=== PATIENT | female | born 1990 | race African-American/Black ===

== ENCOUNTER 2016-05-10 11:28 | Emergency (ER) | payer OTHER ==
[~2016-05-10] VITALS: Ht 170.2 cm; Wt 61.0 kg
[~2016-05-10 11:28] MED LIST: ENOX60IN SQ; FOLI1TAB4 PO; HYDR500C PO; OXYC-395 PO
[2016-05-10 11:34] VITALS: BP 112/67; PULSE 84; RESP 16; TEMP 98.5; O2SAT 100
[2016-05-10] MEDS ORDERED: SODIUM CHLOR 0.9% 1000 ML INJ 1,000 ML IV ONE ×2 (12:31→12:45)
[2016-05-10 12:39] VITALS: O2SAT 98
--- NOTE | 2016-05-10 12:43 | PD ---
HPI Chief Complaint: Sickle Cell Time Seen by Provider: 12:25 Travel History International Travel<30 days: No Contact w/Intl Traveler<30days: No Traveled to known affect area: No History of Present Illness HPI Patient is a 25-year-old female with history of hemoglobin sickle cell disease, presents to emergency room with complaints of sickle cell crisis. Patient reports that she began to have her crisis starting last night, reports that she has diffuse abdominal pain with pain from her knees down to her feet. Patient reports that this is a mild form of her sickle cell crisis as her symptoms are usually more severe. Patient reports that her symptoms are very typical today when compared to her previous symptoms. Patient does follow with Dr. Chen when hematology/oncology. Reports that she recently started hemoglobin electrophoresis which has helped her with her symptoms. Reports that she has not had a sickle cell flare up in a long time. Patient reports that her symptoms today are at baseline and better very similar to when she has had sickle cell crisis in the past. Patient with no fevers or chills. Patient with no chest pain or shortness of breath at this time. PFSH Past Medical History Hx Anticoagulant Therapy: Yes (LOVENOX ) Anemia: Yes (sickle cell) Arthritis: No Asthma: No Autoimmune Disease: No Blood Disorders: Yes (SICKLE CELL) Anxiety: No Depression: No Heart Rhythm Problems: No Cancer: No Cardiovascular Problems: Yes (PUL HYPERTENSION) High Cholesterol: No Chemotherapy: No Chest Pain: Yes Congestive Heart Failure: No COPD: No Cerebrovascular Accident: No Diabetes: No Diminished Hearing: No Endocrine: No Gastrointestinal Disorders: No GERD: No Genitourinary: No Headaches: Yes Hiatal Hernia: No Heparin Induced Thrombocytopen: No Hypertension: Yes (pulmonary) Immune Disorder: No Implanted Vascular Access Dvce: Yes (RIGHT INFUSAPORT) Kidney Stones: No Musculoskeletal: No Neurologic: No Psychiatric: No Reproductive: Yes (PE 2013) Respiratory: Yes (PE 2013) Immunizations Current: Yes Migraines: No Pneumonia: Yes Radiation Therapy: No Renal Failure: No Seizures: No Sickle Cell Disease: Yes Sleep Apnea: No Thyroid Disease: No Ulcer: No ?: Not : 0 Para: 0 Miscarriage: 0 : 0 Past Surgical History Abdominal Surgery: No AICD: No Arteriovenous Shunt: No Body Medical Devices: right chest POWER PORT Cardiac Surgery: No Cholecystectomy: Yes Ear Surgery: No Endocrine Surgery: No Eye Surgery: No Genitourinary Surgery: No Gynecologic Surgery: No Hysterectomy: No Insulin Pump: No Joint Replacement: No Neurologic Surgery: No Oral Surgery: No Pacemaker: No Thoracic Surgery: No Other Surgery: Yes (Gallbladder) Social History Alcohol Use: No Tobacco Use: No Substance Use: No Allergies-Medications (Allergen,Severity, Reaction): Coded Allergies: Pineapple (Verified Allergy, Severe, 05/10/16) FACE SWELLING ITCHING Reported Meds & Prescriptions Reported Meds & Active Scripts Active Oxycodone (Oxycodone HCl) 10 Mg Tab 10 Mg PO Q6H PRN Reported Folate (Folic Acid) 1 Mg Tab 1 Mg PO DAILY Enoxaparin Inj (Enoxaparin Sodium) 60 Mg/0.6 Ml Syr 60 Mg SQ DAILY Hydrea (Hydroxyurea) 500 Mg Cap 500 Mg PO DAILY Review of Systems General / Constitutional: No: Fever Eyes: No: Visual changes HENT: No: Headaches Cardiovascular: No: Chest Pain or Discomfort Respiratory: No: Shortness of Breath Gastrointestinal: Positive: Abdominal Pain Genitourinary: No: Dysuria Musculoskeletal: No: Pain Skin: No Rash Neurologic: No: Weakness Psychiatric: No: Depression Endocrine: No: Polydipsia Hematologic/Lymphatic: No: Easy Bruising Physical Exam Narrative GENERAL: No acute distress, nontoxic SKIN: Focused skin assessment warm/dry. HEAD: Atraumatic. Normocephalic. EYES: Pupils equal and round. No scleral icterus. No injection or drainage. ENT: No nasal bleeding or discharge. Mucous membranes pink and moist. NECK: Trachea midline. No JVD. CARDIOVASCULAR: Regular rate and rhythm. No murmur appreciated. RESPIRATORY: No accessory muscle use. Clear to auscultation. Breath sounds equal bilaterally. GASTROINTESTINAL: Abdomen soft, non-tender, nondistended. Hepatic and splenic margins not palpable. MUSCULOSKELETAL: No obvious deformities. No clubbing. No cyanosis. No edema. NEUROLOGICAL: Awake and alert. No obvious cranial nerve deficits. Motor grossly within normal limits. Normal speech. PSYCHIATRIC: Appropriate mood and affect; insight and judgment normal. Data Data Last Documented VS Vital Signs Date Time Temp Pulse Resp B/P Pulse Ox O2 Delivery O2 Flow Rate FiO2 05/10/16 13:16 63 18 101/62 98 Room Air 05/10/16 11:34 98.5 Orders Complete Blood Count With Diff (05/10/16 12:31) Comprehensive Metabolic Panel (05/10/16 12:31) Retic Count (05/10/16 12:31) Urinalysis - C+S If Indicated (05/10/16 12:31) Chest, Single Ap (05/10/16 12:31) Ecg Monitoring (05/10/16 12:31) Iv Access Insert/Monitor (05/10/16 12:31) Oximetry (05/10/16 12:31) Hydromorphone Pf Inj (Dilaudid Pf Inj) (05/10/16 12:45) Ondansetron Inj (Zofran Inj) (05/10/16 12:45) Sodium Chloride 0.9% Flush (Ns Flush) (05/10/16 12:45) Sodium Chlor 0.9% 1000 Ml Inj (Ns 1000 M (05/10/16 12:31) Diphenhydramine Inj (Benadryl Inj) (05/10/16 12:45) Sodium Chloride 0.9% Flush (Ns Flush) (05/10/16 12:45) Heparin Central Flush (Heparin Central F (05/10/16 12:45) Ed Urine Pregnancytest Poc (05/10/16 12:31) Sodium Chlor 0.9% 1000 Ml Inj (Ns 1000 M (05/10/16 12:45) Hydromorphone Pf Inj (Dilaudid Pf Inj) (05/10/16 14:30) Labs Laboratory Tests Test 05/10/16 12:59 White Blood Count 10.9 TH/MM3 Red Blood Count 3.13 MIL/MM3 Hemoglobin 9.1 GM/DL Hematocrit 28.2 % Mean Corpuscular Volume 90.1 FL Mean Corpuscular Hemoglobin 28.9 PG Mean Corpuscular Hemoglobin 32.1 % Concent Red Cell Distribution Width 14.8 % Platelet Count 625 TH/MM3 Mean Platelet Volume 7.9 FL Neutrophils (%) (Auto) 74.2 % Lymphocytes (%) (Auto) 17.9 % Monocytes (%) (Auto) 4.9 % Eosinophils (%) (Auto) 2.6 % Basophils (%) (Auto) 0.4 % Neutrophils # (Auto) 8.2 TH/MM3 Lymphocytes # (Auto) 1.9 TH/MM3 Monocytes # (Auto) 0.5 TH/MM3 Eosinophils # (Auto) 0.3 TH/MM3 Basophils # (Auto) 0.0 TH/MM3 CBC Comment AUTO DIFF Differential Comment AUTO DIFF CONFIRMED Reticulocyte Count 1.7 % Absolute Reticulocyte Count 49.9 MIL/L Urine Collection Type CLEAN CATCH Urine Color YELLOW Urine Turbidity SLIGHT Urine pH 7.0 Urine Specific [place] 1.013 Urine Protein NEG mg/dL Urine Glucose (UA) NEG mg/dL Urine Ketones NEG mg/dL Urine Occult Blood TRACE Urine Nitrite NEG Urine Bilirubin NEG Urine Leukocyte Esterase NEG Urine RBC 4-9 /hpf Urine WBC 0-2 /hpf Urine Squamous Epithelial 6-8 /hpf Cells Urine Amorphous Sediment MOD Microscopic Urinalysis Comment CULT NOT INDICATED Urine Collection Time 1252 Sodium Level 142 MEQ/L Potassium Level 4.2 MEQ/L Chloride Level 111 MEQ/L Carbon Dioxide Level 25.7 MEQ/L Anion Gap 5 MEQ/L Blood Urea Nitrogen 4 MG/DL Creatinine 0.42 MG/DL Estimat Glomerular Filtration 224 ML/MIN Rate Random Glucose 101 MG/DL Calcium Level 8.6 MG/DL Total Bilirubin 1.4 MG/DL Aspartate Amino Transf 64 U/L (AST/SGOT) Alanine Aminotransferase 101 U/L (ALT/SGPT) Alkaline Phosphatase 96 U/L Total Protein 7.8 GM/DL Albumin 3.9 GM/DL [facility] Medical Decision Making Medical Screen Exam Complete: Yes Emergency Medical Condition: Yes Interpretation(s) Vital Signs Date Time Temp Pulse Resp B/P Pulse Ox O2 Delivery O2 Flow Rate FiO2 05/10/16 13:16 63 18 101/62 98 Room Air 05/10/16 12:39 98 Room Air 05/10/16 11:34 98.5 84 16 112/67 100 Differential Diagnosis Sickle cell crisis, electrolyte abnormality, acute chest syndrome, anemia Narrative Course Patient is a 25-year-old female with history of hemoglobin sickle cell disease, presents to emergency room with complaints of typical sickle cell flare up. Patient reports that she has been having abdominal pain with pain from her knees and her feet since last night. Patient reports that symptoms are typical for her normal sickle cell crisis. Patient denies any chest pain or shortness breath, denies any fevers or chills. Labs including reticulocyte count ordered. IV fluids as well as pain medications ordered. We'll continue to monitor patient. Patient reevaluated, patient with continued pain, will remedicate CBC & BMP Diagram 05/10/16 12:59 Last Impressions Chest X-Ray 05/10/16 1231 Signed Impressions: Service Date/Time: Tuesday, May 10, 2016 12:50 - CONCLUSION: No acute disease. Harish Travis MD FACR Patient reevaluated, patient reports that she is feeling much better after second dose of Dilaudid. I reviewed all labs and all studies with patient detail. Patient reports resolution of symptoms. Patient will follow-up with her primary care doctor as well as your account executive key accounts and return to emergency room as needed. Patient thankful for care Diagnosis Primary Impression: Sickle cell anemia with crisis Patient Instructions: Narcotic given in the ED, General Instructions Additional Instructions: Please follow-up with your primary care doctor Please follow up with account executive key accounts Return to the emergency room as needed Disposition: 01 DISCHARGE HOME Condition: Stable Rose Marie Mccartney DO May 10, 2016 12:43
[2016-05-10] MEDS ORDERED: HYDROmorphone HCL PF 2 MG/ML VIAL IVS ONE ×2 (12:45→14:30)
[2016-05-10] MEDS ORDERED: ONDANSETRON HCL 4 MG/2 ML VIAL IVP ONE (12:45)
[2016-05-10] MEDS ORDERED: SODIUM CHLORIDE 0.9% FLUSH 10 ML FLUSH IVF PRN ×2 (12:45)
[2016-05-10] MEDS ORDERED: diphenhydrAMINE HCL 50 MG/ML VIAL IV ONE (12:45)
[2016-05-10 13:06] LABS: AUTOMATED NEUTROPHIL # 8.2 TH/MM3 (1.8-7.7); BASOPHIL % 0.4 % (0.0-2.0); EOSINOPHIL # 0.3 TH/MM3 (0-0.4); EOSINOPHIL % 2.6 % (0.0-4.0); HEMATOCRIT 28.2 % (35.0-46.0); LYMPH % 17.9 % (9.0-44.0); LYMPHOCYTE # 1.9 TH/MM3 (1.0-4.8); MEAN CELL VOLUME 90.1 FL (80.0-100.0); MEAN CORPUSCULAR HEMOGLOBIN 28.9 PG (27.0-34.0); MEAN CORPUSCULAR HGB CONC 32.1 % (32.0-36.0); MONO % 4.9 % (0.0-8.0); NEUT % 74.2 % (16.0-70.0); PLATELET COUNT 625 TH/MM3 (150-450); RED BLOOD COUNT 3.13 MIL/MM3 (4.00-5.30); RED CELL DISTRIBUTION WIDTH 14.8 % (11.6-17.2); WHITE BLOOD COUNT 10.9 TH/MM3 (4.0-11.0)
[2016-05-10 13:16] VITALS: BP 101/62; PULSE 63; RESP 18; O2SAT 98
[2016-05-10 13:20] LABS: BLOOD, URINE TRACE (NEG); GLUCOSE,URINE NEG (NEG); KETONE, URINE NEG (NEG); NITRITE,URINE NEG (NEG)
[2016-05-10 13:21] LABS: CHLORIDE 111 MEQ/L (98-107); POTASSIUM 4.2 MEQ/L (3.5-5.1); SODIUM (NA) 142 MEQ/L (136-145)
[2016-05-10 13:25] LABS: ANION GAP 5 MEQ/L (5-15); BICARBONATE 25.7 MEQ/L (21.0-32.0); BLOOD UREA NITROGEN 4 MG/DL (7-18); METHOD OF COLLECTION CLEAN CATCH; URINE COLOR YELLOW (YELLW/STRAW)
[2016-05-10 13:26] LABS: HEMO FLAGS AUTO DIFF
[2016-05-10 13:27] LABS: COMMENT (UR) CULT NOT INDICATED; COMMENT2 (UR) MUCOUS PRESENT; CULTURE IF INDICATED CULT NOT INDICATED; WBC, URINE 0-2 /hpf (0-5)
[2016-05-10 13:28] LABS: ALT (GPT) 101 U/L (10-53); AST (GOT) 64 U/L (15-37); GLOMERULAR FILTRATION RATE 224 ML/MIN (>89)
[2016-05-10 13:29] LABS: TOTAL BILIRUBIN ADULT 1.4 MG/DL (0.2-1.0)
[2016-05-10 13:30] LABS: ALKALINE PHOSPHATASE 96 U/L (45-117)
--- NOTE | 2016-05-10 13:33 | RADHPO ---
EXAM DATE/TIME: 05/10/2016 12:50 [facility] COMPARISON: CHEST SINGLE AP, December 29, 2015, 15:03. INDICATIONS : Chest pain. MEDICAL HISTORY : Sickle Cell disease. SURGICAL HISTORY : port ENCOUNTER: Initial ACUITY: 2 days PAIN SCORE: 2/10 LOCATION: Bilateral chest FINDINGS: A single view of the chest demonstrates the lungs to be symmetrically aerated without evidence of mas s, infiltrate or effusion. The cardiomediastinal contours are unremarkable. [id number] is noted on the right.. Osseous structures are intact. CONCLUSION: No acute disease. Harish Travis MD FACR on May 10, 2016 at 13:31 Board Certified Radiologist. This report was verified electronically.
[2016-05-10 13:52] LABS: SCAN/DIFF AUTO DIFF CONFIRMED
[2016-05-10 13:59] LABS: RETIC % 1.7 % (0.4-3.0); REVIEW FLAG FINAL
== END 2016-05-10 15:31 | disposition home or self-care (01) ==
LOC: PHED 11:28
DX: D57.00 Hb-SS disease with crisis, unspecified (principal); I27.2 Other secondary pulmonary hypertension; Z79.899 Other long term (current) drug therapy; Z79.01 Long term (current) use of anticoagulants
CPT/HCPCS: 71010; 80053; 81001; 84703; 85025; 85044; 96361; 96374; 96375; 96376; 99284; J1170; J1200; J1642; J2405; J7030

== ENCOUNTER 2016-06-26 14:27 | Emergency (ER) | payer OTHER ==
[2016-06-26 14:33] VITALS: BP 109/66; PULSE 103; RESP 20; TEMP 98.8; O2SAT 96
[2016-06-26] MEDS ORDERED: ONDANSETRON HCL 4 MG/2 ML VIAL IVP ONE (15:15)
[2016-06-26] MEDS ORDERED: SODIUM CHLOR 0.9% 1000 ML INJ 1,000 ML IV ONE (15:15)
[2016-06-26] MEDS ORDERED: MORPHINE SULFATE 8 MG/ML INJ IV PUSH ONE (15:15)
--- NOTE | 2016-06-26 15:16 | PD ---
HPI Chief Complaint: Sickle Cell Time Seen by Provider: 14:51 Travel History International Travel<30 days: No Contact w/Intl Traveler<30days: No Traveled to known affect area: No History of Present Illness HPI The patient was seen and examined in the presence of the nurse. She complains of sickle pain. Pain is diffusely located throughout the body. No specific area of pain. Denies fever. Severity symptoms is mild to moderate. No alleviating factors PFSH Past Medical History Hx Anticoagulant Therapy: Yes (LOVENOX ) Anemia: Yes (sickle cell) Arthritis: No Asthma: No Autoimmune Disease: No Blood Disorders: Yes (SICKLE CELL) Anxiety: No Depression: No Heart Rhythm Problems: No Cancer: No Cardiovascular Problems: Yes (PUL HYPERTENSION) High Cholesterol: No Chemotherapy: No Chest Pain: Yes Congestive Heart Failure: No COPD: No Cerebrovascular Accident: No Diabetes: No Diminished Hearing: No Endocrine: No Gastrointestinal Disorders: No GERD: No Genitourinary: No Headaches: Yes Hiatal Hernia: No Heparin Induced Thrombocytopen: No Hypertension: Yes (pulmonary) Immune Disorder: No Implanted Vascular Access Dvce: Yes (RIGHT INFUSAPORT) Kidney Stones: No Musculoskeletal: No Neurologic: No Psychiatric: No Reproductive: Yes (PE 2013) Respiratory: Yes (PE 2013) Immunizations Current: Yes Migraines: No Pneumonia: Yes Radiation Therapy: No Renal Failure: No Seizures: No Sickle Cell Disease: Yes Sleep Apnea: No Thyroid Disease: No Ulcer: No Tetanus Vaccination: Unknown Influenza Vaccination: No ?: Not LMP: IUD : 0 Para: 0 Miscarriage: 0 : 0 Past Surgical History Abdominal Surgery: No AICD: No Arteriovenous Shunt: No Body Medical Devices: right chest POWER PORT Cardiac Surgery: No Cholecystectomy: Yes Ear Surgery: No Endocrine Surgery: No Eye Surgery: No Genitourinary Surgery: No Gynecologic Surgery: No Hysterectomy: No Insulin Pump: No Joint Replacement: No Neurologic Surgery: No Oral Surgery: No Pacemaker: No Thoracic Surgery: No Other Surgery: Yes (Gallbladder) Social History Alcohol Use: No Tobacco Use: No Substance Use: No Allergies-Medications (Allergen,Severity, Reaction): Coded Allergies: Pineapple (Verified Allergy, Severe, 06/26/16) FACE SWELLING ITCHING Reported Meds & Prescriptions Reported Meds & Active Scripts Active Oxycodone (Oxycodone HCl) 10 Mg Tab 10 Mg PO Q6H PRN Reported Folate (Folic Acid) 1 Mg Tab 1 Mg PO DAILY Enoxaparin Inj (Enoxaparin Sodium) 60 Mg/0.6 Ml Syr 60 Mg SQ DAILY Hydrea (Hydroxyurea) 500 Mg Cap 500 Mg PO DAILY Review of Systems General / Constitutional: No: Fever Eyes: No: Visual changes HENT: No: Headaches Cardiovascular: No: Chest Pain or Discomfort Respiratory: No: Shortness of Breath Gastrointestinal: No: Abdominal Pain Genitourinary: No: Dysuria Musculoskeletal: Positive: Pain Skin: No Rash Neurologic: No: Weakness Psychiatric: No: Depression Endocrine: No: Polydipsia Hematologic/Lymphatic: No: Easy Bruising Physical Exam Narrative GENERAL: Well-nourished, well-developed patient in no apparent distress. SKIN: Focused skin assessment reveals no rash and nodules. Skin is Warm and dry. HEAD: Atraumatic. Normocephalic. EYES: Pupils equal and round. No scleral icterus. No injection or drainage. ENT: No nasal bleeding or discharge. Mucous membranes pink and moist. NECK: Trachea midline. No JVD. CARDIOVASCULAR: Regular rate and rhythm. No murmur appreciated. RESPIRATORY: No accessory muscle use. Clear to auscultation. Breath sounds equal bilaterally. GASTROINTESTINAL: Abdomen soft, non-tender, nondistended. Hepatic and splenic margins not palpable. MUSCULOSKELETAL: No obvious deformities. No clubbing. No cyanosis. No edema. NEUROLOGICAL: Awake and alert. No obvious cranial nerve deficits. Motor grossly within normal limits. Normal speech. PSYCHIATRIC: Appropriate mood and affect; insight and judgment normal. Data Data Last Documented VS Vital Signs Date Time Temp Pulse Resp B/P Pulse Ox O2 Delivery O2 Flow Rate FiO2 06/26/16 14:33 98.8 103 20 109/66 96 Orders Complete Blood Count With Diff (06/26/16 15:09) Ondansetron Inj (Zofran Inj) (06/26/16 15:15) Morphine Inj (Morphine Inj) (06/26/16 15:15) Sodium Chlor 0.9% 1000 Ml Inj (Ns 1000 M (06/26/16 15:15) Heparin Central Flush (Heparin Central F (06/26/16 15:15) Labs Laboratory Tests Test 06/26/16 15:18 White Blood Count 15.9 TH/MM3 Red Blood Count 2.61 MIL/MM3 Hemoglobin 7.8 GM/DL Hematocrit 23.4 % Mean Corpuscular Volume 89.4 FL Mean Corpuscular Hemoglobin 29.8 PG Mean Corpuscular Hemoglobin 33.3 % Concent Red Cell Distribution Width 19.4 % Platelet Count 640 TH/MM3 Mean Platelet Volume 7.5 FL Neutrophils (%) (Auto) 70.1 % Lymphocytes (%) (Auto) 19.1 % Monocytes (%) (Auto) 6.6 % Eosinophils (%) (Auto) 2.0 % Basophils (%) (Auto) 2.2 % Neutrophils # (Auto) 11.3 TH/MM3 Lymphocytes # (Auto) 3.0 TH/MM3 Monocytes # (Auto) 1.0 TH/MM3 Eosinophils # (Auto) 0.3 TH/MM3 Basophils # (Auto) 0.3 TH/MM3 CBC Comment AUTO DIFF MDM Medical Decision Making Medical Screen Exam Complete: Yes Emergency Medical Condition: Yes Medical Record Reviewed: Yes Differential Diagnosis Sickle cell pain, narcotic seeking behavior, narcotic withdrawal Narrative Course I have reviewed the patient's electronic medical record. Reviewed her last hematology visit which was May 2016 and her last 3 blood draws. Her baseline hemoglobin is around 8 Port is accessed I gave her 1 L normal saline IV bolus Gave her dose of IV Zofran and IV morphine CBC reveals hemoglobin of 7.8, similar to prior Patient has history of iron overload so would want to limit transfusion unless absolutely necessary On recheck she looks clinically asymptomatic She is euvolemic Stable for outpatient follow-up Diagnosis Primary Impression: Sickle cell anemia with crisis Additional Instructions: The patient was advised to follow up with their physician and return if they worsen. Med/Other Pt SpecificInfo: Other Disposition: 01 DISCHARGE HOME Condition: Stable Afshin Grigsby MD June 26, 2016 15:16
[2016-06-26 15:39] LABS: AUTOMATED NEUTROPHIL # 11.3 TH/MM3 (1.8-7.7); BASOPHIL # 0.3 TH/MM3 (0-0.2); BASOPHIL % 2.2 % (0.0-2.0); EOSINOPHIL # 0.3 TH/MM3 (0-0.4); HEMATOCRIT 23.4 % (35.0-46.0); LYMPH % 19.1 % (9.0-44.0); MEAN CELL VOLUME 89.4 FL (80.0-100.0); MEAN CORPUSCULAR HEMOGLOBIN 29.8 PG (27.0-34.0); MEAN CORPUSCULAR HGB CONC 33.3 % (32.0-36.0); MONO % 6.6 % (0.0-8.0); NEUT % 70.1 % (16.0-70.0); PLATELET COUNT 640 TH/MM3 (150-450); RED BLOOD COUNT 2.61 MIL/MM3 (4.00-5.30); RED CELL DISTRIBUTION WIDTH 19.4 % (11.6-17.2); WHITE BLOOD COUNT 15.9 TH/MM3 (4.0-11.0)
[2016-06-26 15:40] LABS: HEMO FLAGS AUTO DIFF
[2016-06-26 16:25] VITALS: BP 97/68; PULSE 74; RESP 16; O2SAT 98
[2016-06-26 16:53] LABS: KERATOCYTES 1+ (NORMAL); OVALOCYTES 1+ (NORMAL); TEARDROP RBCS 1+ (NORMAL)
[2016-06-26 16:54] LABS: PLATELET ESTIMATE SMEAR HIGH (NORMAL); SCAN/DIFF AUTO DIFF CONFIRMED
[2016-06-26 16:55] LABS: SICKLE CELLS 1+ (NORMAL)
[2016-06-26 16:57] LABS: CRENATED RBCS 1+ (NORMAL)
== END 2016-06-26 17:00 | disposition home or self-care (01) ==
LOC: PHED 14:27
DX: D57.00 Hb-SS disease with crisis, unspecified (principal); I27.2 Other secondary pulmonary hypertension; Z86.711 Personal history of pulmonary embolism
CPT/HCPCS: 85025; 96361; 96374; 96375; 99284; J1642; J2270; J2405; J7030

== ENCOUNTER 2016-09-01 03:25 | Emergency (ER) | payer OTHER ==
[2016-09-01 03:27] VITALS: BP 100/65; PULSE 95; RESP 16; TEMP 98.9; O2SAT 96
[2016-09-01] MEDS ORDERED: SODIUM CHLOR 0.9% 1000 ML INJ 1,000 ML IV ONE ×2 (05:41→06:30)
[2016-09-01] MEDS ORDERED: diphenhydrAMINE HCL 50 MG/ML VIAL IV ONE (05:45)
[2016-09-01] MEDS ORDERED: HYDROmorphone HCL PF 1 MG/ML VIAL IVS ONE (05:45)
[2016-09-01] MEDS ORDERED: SODIUM CHLORIDE 0.9% FLUSH 10 ML FLUSH IVF PRN (05:45)
[2016-09-01] MEDS ORDERED: ONDANSETRON HCL 4 MG/2 ML VIAL IVP ONE (05:45)
--- NOTE | 2016-09-01 06:17 | PD ---
HPI Chief Complaint: Sickle Cell Time Seen by Provider: 05:41 Travel History International Travel<30 days: No Contact w/Intl Traveler<30days: No Traveled to known affect area: No History of Present Illness HPI 25 -year-old female with a history of sickle cell disease arrives with URI symptoms for the past 2 days. She reports she's had a fever for the past 2 days or so. Typically she feels total body pain with her sickle cell disease however it is most severe in the arms and legs. She has no dyspnea. The patient states typically a URI-like process can precipitate sickle cell type crises. PFSH Past Medical History Hx Anticoagulant Therapy: Yes (LOVENOX ) Anemia: Yes (sickle cell) Arthritis: No Asthma: No Autoimmune Disease: No Blood Disorders: Yes (SICKLE CELL) Anxiety: No Depression: No Heart Rhythm Problems: No Cancer: No Cardiovascular Problems: Yes (PUL HYPERTENSION) High Cholesterol: No Chemotherapy: No Chest Pain: Yes Congestive Heart Failure: No COPD: No Cerebrovascular Accident: No Diabetes: No Diminished Hearing: No Endocrine: No Gastrointestinal Disorders: No GERD: No Genitourinary: No Headaches: Yes Hiatal Hernia: No Heparin Induced Thrombocytopen: No Hypertension: Yes (pulmonary) Immune Disorder: No Implanted Vascular Access Dvce: Yes (RIGHT INFUSAPORT) Kidney Stones: No Musculoskeletal: No Neurologic: No Psychiatric: No Reproductive: Yes (PE 2013) Respiratory: Yes (PE 2013) Immunizations Current: Yes Migraines: No Pneumonia: Yes Radiation Therapy: No Renal Failure: No Seizures: No Sickle Cell Disease: Yes Sleep Apnea: No Thyroid Disease: No Ulcer: No ?: Not LMP: 08/16/16 : 0 Para: 0 Miscarriage: 0 : 0 Past Surgical History Abdominal Surgery: No AICD: No Arteriovenous Shunt: No Body Medical Devices: right chest POWER PORT Cardiac Surgery: No Cholecystectomy: Yes Ear Surgery: No Endocrine Surgery: No Eye Surgery: No Genitourinary Surgery: No Gynecologic Surgery: No Hysterectomy: No Insulin Pump: No Joint Replacement: No Neurologic Surgery: No Oral Surgery: No Pacemaker: No Thoracic Surgery: No Other Surgery: Yes (Gallbladder) Social History Alcohol Use: No Tobacco Use: No Substance Use: No Allergies-Medications (Allergen,Severity, Reaction): Coded Allergies: Pineapple (Verified Allergy, Severe, 09/01/16) FACE SWELLING ITCHING Reported Meds & Prescriptions Reported Meds & Active Scripts Active Oxycodone (Oxycodone HCl) 10 Mg Tab 10 Mg PO Q6H PRN Reported Enoxaparin Inj (Enoxaparin Sodium) 60 Mg/0.6 Ml Syr 60 Mg SQ DAILY Hydrea (Hydroxyurea) 500 Mg Cap 500 Mg PO DAILY Review of Systems Except as stated in HPI: all other systems reviewed are Neg Physical Exam Narrative GENERAL: 45-year-old female well-nourished well-developed no acute distress SKIN: Focused skin assessment warm/dry. HEAD: Atraumatic. Normocephalic. EYES: Pupils equal and round. No scleral icterus. No injection or drainage. ENT: No nasal bleeding or discharge. Mucous membranes pink and moist. NECK: Trachea midline. No JVD. CARDIOVASCULAR: Regular rate and rhythm. No murmur appreciated. RESPIRATORY: No accessory muscle use. Clear to auscultation. Breath sounds equal bilaterally. GASTROINTESTINAL: Abdomen soft, non-tender, nondistended. Hepatic and splenic margins not palpable. MUSCULOSKELETAL: No obvious deformities. No clubbing. No cyanosis. No edema. NEUROLOGICAL: Awake and alert. No obvious cranial nerve deficits. Motor grossly within normal limits. Normal speech. PSYCHIATRIC: Appropriate mood and affect; insight and judgment normal. Data Data Last Documented VS Vital Signs Date Time Temp Pulse Resp B/P Pulse Ox O2 Delivery O2 Flow Rate FiO2 09/01/16 05:33 Room Air 09/01/16 03:27 98.9 95 16 100/65 96 Vital signs reviewed Orders Ecg Monitoring (09/01/16 05:41) Iv Access Insert/Monitor (09/01/16 05:41) Oximetry (09/01/16 05:41) Ondansetron Inj (Zofran Inj) (09/01/16 05:45) Sodium Chloride 0.9% Flush (Ns Flush) (09/01/16 05:45) Sodium Chlor 0.9% 1000 Ml Inj (Ns 1000 M (09/01/16 05:41) Hydromorphone Pf Inj (Dilaudid Pf Inj) (09/01/16 05:45) Diphenhydramine Inj (Benadryl Inj) (09/01/16 05:45) Heparin Central Flush (Heparin Central F (09/01/16 05:45) Heparin Central Flush (Heparin Central F (09/01/16 05:45) Hydromorphone Pf Inj (Dilaudid Pf Inj) (09/01/16 06:30) Sodium Chlor 0.9% 1000 Ml Inj (Ns 1000 M (09/01/16 06:30) Diphenhydramine Inj (Benadryl Inj) (09/01/16 06:30) MDM Medical Decision Making Medical Screen Exam Complete: Yes Emergency Medical Condition: Yes Medical Record Reviewed: Yes Differential Diagnosis Sickle cell disease, acute chest syndrome, aseptic necrosis, septic arthritis Narrative Course The patient received 1 mg of hydromorphone, 25 mg IV Benadryl and 4 mg Zofran. She received a second dose of hydromorphone and Benadryl. She received 2 L normal saline. Upon reassessment at 6:50 AM she reports pain is under control and asked for a work note home. Diagnosis Primary Impression: Sickle cell anemia with crisis Referrals: Spencer Chen MD call for appointment Additional Instructions: You have a choice when it comes to health care, and we are glad that you chose [facility]. Hopefully, we have met your expectations on today's visit. You are welcome to return to [facility] at any time, as we are committed to meeting the health care needs of our community. Med/Other Pt SpecificInfo: No Change to Meds Disposition: 01 DISCHARGE HOME Condition: Stable Josiah Arriaza MD Sep 01, 2016 06:17
[2016-09-01] MEDS ORDERED: diphenhydrAMINE HCL 50 MG/ML VIAL IV PUSH ONE (06:30)
[2016-09-01] MEDS ORDERED: HYDROmorphone HCL PF 1 MG/ML VIAL IV PUSH ONE (06:30)
== END 2016-09-01 08:36 | disposition home or self-care (01) ==
LOC: NEPE 03:25
DX: D57.00 Hb-SS disease with crisis, unspecified (principal); I27.2 Other secondary pulmonary hypertension; Z86.711 Personal history of pulmonary embolism; Z79.01 Long term (current) use of anticoagulants
CPT/HCPCS: 96374; 96375; 99284; J1170; J1200; J1642; J2405; J7030

== ENCOUNTER 2016-11-28 22:59 | Emergency (ER) | payer OTHER ==
[~2016-11-28] VITALS: Ht 167.6 cm; Wt 63.2 kg
[~2016-11-28 22:59] MED LIST changes: -FOLI1TAB4 PO
[2016-11-28 23:01] VITALS: BP 106/55; PULSE 90; RESP 16; TEMP 98.9; O2SAT 97
[2016-11-28 23:18] VITALS: BP 106/55; PULSE 90; RESP 16; TEMP 98.9; O2SAT 97
[2016-11-28] MEDS ORDERED: SODIUM CHLOR 0.9% 1000 ML INJ 1,000 ML IV ONE (23:19)
[2016-11-28] MEDS ORDERED: SODIUM CHLORIDE 0.9% FLUSH 10 ML FLUSH IVF PRN (23:30)
[2016-11-28] MEDS ORDERED: HYDROmorphone HCL PF 1 MG/ML VIAL IV PUSH ONE (23:30)
[2016-11-28] MEDS ORDERED: ONDANSETRON HCL 4 MG/2 ML VIAL IVP ONE (23:30)
[2016-11-28] MEDS ORDERED: diphenhydrAMINE HCL 50 MG/ML VIAL IV PUSH ONE (23:30)
--- NOTE | 2016-11-28 23:32 | PD ---
HPI Chief Complaint: Abdominal Pain Time Seen by Provider: 23:19 Travel History International Travel<30 days: No Contact w/Intl Traveler<30days: No Traveled to known affect area: No History of Present Illness HPI 26-year-old female presents to the emergency department for complaint of lower abdominal pain and left dorsal proximal thigh pain times one week. Pain has been intermittent. Currently pain is 8/10 in intensity. Patient has history of sickle cell anemia and was seen by her clinical assessment manager one week ago. Patient states she had the pain at that time and felt that her exchange pheresis would resolve her symptoms but symptoms have persisted so presents now for further evaluation. Patient has had no fever or chills. No sinus congestion no sore throat no headache no cough no shortness of breath no chest pain. Patient states typically when she has exacerbation of her sickle cell, she has pain in her abdomen and legs. Patient states that she is status post cholecystectomy. No midepigastric or epigastric or periumbilical pain. Last menstrual period was normal for her was September 2016; she had some spotting in October and some spotting at this time. Patient denies . Patient states she reportedly did 2 home tests that were negative. Patient states that she is sexually active with condom use and Mirena contraception. No dysuria, frequency, or urgency; no hematuria or flank pain. No diarrhea. No vomiting. No change in appetite. Patient has not contacted her managing clinical assessment manager or her primary care provider regarding her pain. Patient has pain medication at home that is not providing her symptom relief. Patient does not report any injury. Patient states that she is unable to identify exacerbating or alleviating factors. Patient rates her pain 8/10 in intensity. PFSH Past Medical History Narrative Medical Sickle cell anemia, hypertension, pulmonary embolism, Lovenox anticoagulation, PowerPort, cholecystectomy; no tobacco use: Nursing notes reviewed Hx Anticoagulant Therapy: Yes (LOVENOX 100 MG DAILY) Anemia: Yes (sickle cell) Arthritis: No Asthma: No Autoimmune Disease: No Blood Disorders: Yes (SICKLE CELL) Anxiety: No Depression: No Heart Rhythm Problems: No Cancer: No Cardiovascular Problems: Yes (PUL HYPERTENSION) High Cholesterol: No Chemotherapy: No Chest Pain: Yes Congestive Heart Failure: No COPD: No Cerebrovascular Accident: No Diabetes: No Diminished Hearing: No Endocrine: No Gastrointestinal Disorders: No GERD: No Genitourinary: No Headaches: Yes Hiatal Hernia: No Heparin Induced Thrombocytopen: No Hypertension: Yes (pulmonary) Immune Disorder: No Implanted Vascular Access Dvce: Yes (RIGHT INFUSAPORT) Kidney Stones: No Musculoskeletal: No Neurologic: No Psychiatric: No Reproductive: Yes (PE 2013) Respiratory: Yes (2013) Immunizations Current: Yes Migraines: No Pneumonia: Yes Radiation Therapy: No Renal Failure: No Seizures: No Sickle Cell Disease: Yes Sleep Apnea: No Thyroid Disease: No Ulcer: No ?: Unknown LMP: 09/25/16 : 0 Para: 0 Miscarriage: 0 : 0 Past Surgical History Abdominal Surgery: No AICD: No Arteriovenous Shunt: No Body Medical Devices: right chest POWER PORT Cardiac Surgery: No Cholecystectomy: Yes Ear Surgery: No Endocrine Surgery: No Eye Surgery: No Genitourinary Surgery: No Gynecologic Surgery: No Hysterectomy: No Insulin Pump: No Joint Replacement: No Neurologic Surgery: No Oral Surgery: No Pacemaker: No Thoracic Surgery: No Other Surgery: Yes (Gallbladder) Social History Alcohol Use: No Tobacco Use: No Substance Use: No Allergies-Medications (Allergen,Severity, Reaction): Coded Allergies: pineapple (Unverified Allergy, Severe, 11/29/16) FACE SWELLING ITCHING Reported Meds & Prescriptions Reported Meds & Active Scripts Active Reported Mirena (Levonorgestrel (Iud)) 20 Mcg/24 Hour (5 Years) Iud 52 Mg I-UTERINE ONCE Folic Acid 0.4 Mg Tab 1 Mg PO DAILY Enoxaparin Inj (Enoxaparin Sodium) 60 Mg/0.6 Ml Syr 60 Mg SQ DAILY Hydrea (Hydroxyurea) 500 Mg Cap 500 Mg PO DAILY Review of Systems Except as stated in HPI: all other systems reviewed are Neg General / Constitutional: No: Fever, Chills HENT: No: Sore Throat, Congestion Cardiovascular: No: Chest Pain or Discomfort Respiratory: No: Shortness of Breath Gastrointestinal: Positive: Abdominal Pain, No: Nausea, Vomiting, Diarrhea Genitourinary: No: Urgency, Frequency, Dysuria, Flank Pain Musculoskeletal: Positive: Myalgias, Pain (right anterior proximal thigh), No: Limited ROM, Weakness, Cramping, Edema Skin: No Rash Neurologic: No: Weakness Psychiatric: No: Anxiety Endocrine: No: Heat Intolerance Hematologic/Lymphatic: No: Easy Bruising Physical Exam Narrative GENERAL: Well-developed well-nourished female in no acute distress no respiratory distress SKIN: Warm and dry. HEAD: Normocephalic. EYES: No scleral icterus. No injection or drainage. NECK: Supple, trachea midline. No JVD or lymphadenopathy. CARDIOVASCULAR: Regular rate and rhythm without murmurs, gallops, or rubs. RESPIRATORY: Breath sounds equal bilaterally. No accessory muscle use. GASTROINTESTINAL: Abdomen soft, mild bilateral lower quadrant tenderness to direct palpation without guarding or rebound, nondistended. MUSCULOSKELETAL: No cyanosis, or edema. Bilateral dorsalis pedis pulses. Bilateral lower extremities demonstrate intact range of motion for hip flexion extension and internal/external rotation abduction and adduction knee flexion extension and ankle dorsi flexion plantar flexion inversion eversion. No deformity. BACK: Nontender without obvious deformity. No CVA tenderness. Data Data Last Documented VS Vital Signs Date Time Temp Pulse Resp B/P (MAP) Pulse Ox O2 Delivery O2 Flow Rate FiO2 11/29/16 02:38 18 11/29/16 01:54 86 109/77 (88) 97 Room Air 11/28/16 23:18 98.9 Orders Orders Complete Blood Count With Diff (11/28/16 23:19) Comprehensive Metabolic Panel (11/28/16 23:19) Retic Count (11/28/16 23:19) Urinalysis - C+S If Indicated (11/28/16 23:19) Ecg Monitoring (11/28/16 23:19) Iv Access Insert/Monitor (11/28/16 23:19) Oximetry (11/28/16 23:19) Ondansetron Inj (Zofran Inj) (11/28/16 23:30) Sodium Chloride 0.9% Flush (Ns Flush) (11/28/16 23:30) Sodium Chlor 0.9% 1000 Ml Inj (Ns 1000 M (11/28/16 23:19) Diphenhydramine Inj (Benadryl Inj) (11/28/16 23:30) Lipase (11/28/16 23:19) Hydromorphone Pf Inj (Dilaudid Pf Inj) (11/28/16 23:30) Ed Urine Pregnancytest Poc (11/28/16 23:19) Sodium Chlor 0.9% 1000 Ml Inj (Ns 1000 M (11/29/16 00:00) Urine Culture (11/28/16 23:29) Ceftriaxone Inj (Rocephin Inj) (11/29/16 00:45) Ct Abd/Pel W Iv Contrast(Rout) (11/29/16 ) Iohexol 350 Inj (Omnipaque 350 Inj) (11/29/16 01:49) Hydromorphone Pf Inj (Dilaudid Pf Inj) (11/29/16 02:15) Diphenhydramine Inj (Benadryl Inj) (11/29/16 02:15) Labs Laboratory Tests Test 11/28/16 23:29 White Blood Count 14.1 TH/MM3 Red Blood Count 2.88 MIL/MM3 Hemoglobin 8.5 GM/DL Hematocrit 25.0 % Mean Corpuscular Volume 86.9 FL Mean Corpuscular Hemoglobin 29.5 PG Mean Corpuscular Hemoglobin Concent 34.0 % Red Cell Distribution Width 19.6 % Platelet Count 460 TH/MM3 Mean Platelet Volume 7.9 FL Neutrophils (%) (Auto) 71.2 % Lymphocytes (%) (Auto) 18.7 % Monocytes (%) (Auto) 7.1 % Eosinophils (%) (Auto) 1.4 % Basophils (%) (Auto) 1.6 % Neutrophils # (Auto) 10.1 TH/MM3 Lymphocytes # (Auto) 2.6 TH/MM3 Monocytes # (Auto) 1.0 TH/MM3 Eosinophils # (Auto) 0.2 TH/MM3 Basophils # (Auto) 0.2 TH/MM3 CBC Comment AUTO DIFF Differential Total Cells Counted 100 Neutrophils % (Manual) 71 % Lymphocytes % 22 % Monocytes % 6 % Eosinophils % 1 % Neutrophils # (Manual) 10.0 TH/MM3 Nucleated Red Blood Cells 4 /100 WBC Differential Comment FINAL DIFF MANUAL Platelet Estimate HIGH Platelet Morphology Comment NORMAL Sickle Cells 1+ Target Cells 1+ Reticulocyte Count 11.0 % Absolute Reticulocyte Count 319.5 MIL/L Urine Color YELLOW Urine Turbidity SLIGHT Urine pH 6.5 Urine Specific [place] 1.014 Urine Protein NEG mg/dL Urine Glucose (UA) NEG mg/dL Urine Ketones NEG mg/dL Urine Occult Blood TRACE Urine Nitrite NEG Urine Bilirubin NEG Urine Leukocyte Esterase MOD Urine RBC 4-9 /hpf Urine WBC 9-14 /hpf Urine WBC Clumps OCC Urine Squamous Epithelial Cells 0-5 /hpf Urine Amorphous Sediment FEW Urine Hyaline Casts 0-2 /lpf Urine Mucus OCC /lpf Microscopic Urinalysis Comment CULTURE INDICATED Blood Urea Nitrogen 6 MG/DL Creatinine 0.47 MG/DL Random Glucose 91 MG/DL Total Protein 7.6 GM/DL Albumin 4.0 GM/DL Calcium Level 8.9 MG/DL Alkaline Phosphatase 64 U/L Aspartate Amino Transf (AST/SGOT) 51 U/L Alanine Aminotransferase (ALT/SGPT) 69 U/L Total Bilirubin 2.0 MG/DL Sodium Level 139 MEQ/L Potassium Level 4.0 MEQ/L Chloride Level 106 MEQ/L Carbon Dioxide Level 25.5 MEQ/L Anion Gap 8 MEQ/L Estimat Glomerular Filtration Rate 195 ML/MIN Lipase 145 U/L MDM Medical Decision Making Medical Screen Exam Complete: Yes Emergency Medical Condition: Yes Medical Record Reviewed: Yes Interpretation(s) POC hcg: negative CT ABD/PEL CONCLUSION: 1. No evidence of acute abdominal or pelvic process. No masses are identified. Jevon Cho MD on November 29, 2016 at 1:54 Board Certified Radiologist. This report was verified electronically. CBC & BMP Diagram 11/28/16 23:29 Total Protein 7.6, Albumin 4.0, Calcium Level 8.9, Alkaline Phosphatase 64, Aspartate Amino Transf (AST/SGOT) 51 H, Alanine Aminotransferase (ALT/SGPT) 69 H , Total Bilirubin 2.0 H Vital Signs Date Time Temp Pulse Resp B/P (MAP) Pulse Ox O2 Delivery O2 Flow Rate FiO2 11/29/16 01:54 86 16 109/77 (88) 97 Room Air 11/29/16 01:11 76 16 108/66 (80) 99 Room Air 11/29/16 00:30 108/84 (92) 11/29/16 00:01 98/60 (73) 11/28/16 23:51 84 16 84/44 (57) 100 Room Air 11/28/16 23:51 16 100 Room Air 11/28/16 23:18 98.9 90 16 106/55 (72) 97 11/28/16 23:01 98.9 90 16 106/55 (72) 97 Differential Diagnosis Sickle-cell crisis, vaso-occlusive crisis, anemia, appendicitis, UTI, pyelonephritis, kidney stone, ruptured ovarian cyst, ovarian torsion, ectopic , avascular necrosis Narrative Course Patient's PowerPort accessed and patient administered 1 L normal saline ordered Zofran 4 mg IV Benadryl 25 mg and Dilaudid 1 mg IV Patient was noted to have decreased blood pressure therefore blood pressure repeated and patient administered IV fluid bolus prior to administration of any pain medication Patient's blood pressure improved after IV fluids and was administered half dose of pain medicine to be followed by full dose of pain medicine based on blood pressure and patient tolerance Urinalysis is abnormal for leukocyte esterase as well as white blood cells and clumped white blood cells with culture indicated. CT abdomen and pelvis with IV contrast ordered. It is 2:[address] abdomen and pelvis reveals no acute intra-abdominal or pelvic process per reading radiologist appendix is visualized and appears normal. Patient has received a dose of IV antibiotic for probable UTI Patient requesting additional dose of pain medication Is now 2:50 AM and patient reports feeling clinically improved is aware that CT abdomen and pelvis reveals no acute intra-abdominal process and specifically appendix was visualized and it was reported as normal. Patient is stable for outpatient management and follow-up with her primary care provider and her clinical assessment manager. Diagnosis Primary Impression: UTI (urinary tract infection) Additional Impression: Sickle cell anemia Referrals: Spencer Chen MD call for appointment Primary Care Physician call for appointment Patient Instructions: Narcotic given in the ED, General Instructions Additional Instructions: Complete course of antibiotic as prescribed Follow-up with your primary care provider and clinical assessment manager Return to the emergency department for any concerns or change in condition Take acetaminophen as needed for fever 100.4F or greater Take ibuprofen as tolerated for fever 100.4F or greater or pain associated with inflammation Med/Other Pt SpecificInfo: Prescription(s) given Scripts Ciprofloxacin (Cipro) 500 Mg Tab 500 MG PO BID for Infection, #14 TAB 0 Refills Prov: Rhonda Koroma MD 11/29/16 Disposition: 01 DISCHARGE HOME Condition: Stable Rhonda Koroma MD Nov 28, 2016 23:32
[2016-11-28 23:51] VITALS: BP 84/44; PULSE 84; RESP 16; O2SAT 100
[2016-11-28 23:58] LABS: BLOOD, URINE TRACE (NEG); GLUCOSE,URINE NEG (NEG); KETONE, URINE NEG (NEG); NITRITE,URINE NEG (NEG); PH, URINE 6.5 (5.0-8.5)
[2016-11-28 23:59] LABS: AUTOMATED NEUTROPHIL # 10.1 TH/MM3 (1.8-7.7); BASOPHIL # 0.2 TH/MM3 (0-0.2); BASOPHIL % 1.6 % (0.0-2.0); EOSINOPHIL # 0.2 TH/MM3 (0-0.4); EOSINOPHIL % 1.4 % (0.0-4.0); LYMPH % 18.7 % (9.0-44.0); LYMPHOCYTE # 2.6 TH/MM3 (1.0-4.8); MEAN CELL VOLUME 86.9 FL (80.0-100.0); MEAN CORPUSCULAR HEMOGLOBIN 29.5 PG (27.0-34.0); MONO % 7.1 % (0.0-8.0); NEUT % 71.2 % (16.0-70.0); PLATELET COUNT 460 TH/MM3 (150-450); RED BLOOD COUNT 2.88 MIL/MM3 (4.00-5.30); RED CELL DISTRIBUTION WIDTH 19.6 % (11.6-17.2); WHITE BLOOD COUNT 14.1 TH/MM3 (4.0-11.0)
[2016-11-29] MEDS ORDERED: SODIUM CHLOR 0.9% 1000 ML INJ 1,000 ML IV ONE
[2016-11-29 00:01] VITALS: BP 98/60
[2016-11-29 00:06] LABS: CHLORIDE 106 MEQ/L (98-107); HEMO FLAGS AUTO DIFF; SODIUM (NA) 139 MEQ/L (136-145)
[2016-11-29 00:10] LABS: ANION GAP 8 MEQ/L (5-15); BICARBONATE 25.5 MEQ/L (21.0-32.0); BLOOD UREA NITROGEN 6 MG/DL (7-18)
[2016-11-29 00:13] LABS: ALT (GPT) 69 U/L (10-53); AST (GOT) 51 U/L (15-37); GLOMERULAR FILTRATION RATE 195 ML/MIN (>89); URINE COLOR YELLOW (YELLW/STRAW)
[2016-11-29 00:15] LABS: SQUAMOUS EPITHELIAL CELL URINE 0-5 /hpf (0-5)
[2016-11-29 00:16] LABS: ALKALINE PHOSPHATASE 64 U/L (45-117); MUCUS URINE OCC /lpf (OCC)
[2016-11-29 00:17] LABS: COMMENT (UR) CULTURE INDICATED; CULTURE IF INDICATED CULTURE INDICATED; HYALINE CAST, URINE 0-2 /lpf (RARE)
[2016-11-29] MEDS ORDERED: MIREIUD I-UTERINE (00:27)
[2016-11-29] MEDS ORDERED: FOLI400T PO (00:27)
[2016-11-29 00:29] LABS: CORRECTED NUCLEATED RBC 4 /100 WBC (0-0); EOSINOPHILS 1 % (0-4); POLYS (SEG NEUTROPHILS) 71 % (16-70); SICKLE CELLS 1+ (NORMAL); WBC DIFF SAMPLE 100
[2016-11-29 00:30] VITALS: BP 108/84
[2016-11-29 00:31] LABS: PLATELET ESTIMATE SMEAR HIGH (NORMAL); PLATELET MORPHOLOGY NORMAL (NORMAL); SCAN/DIFF FINAL DIFF MANUAL; TARGET CELLS 1+ (NORMAL)
[2016-11-29] MEDS ORDERED: cefTRIAXone INJ 1,000 MG in SODIUM CHLORIDE 0.9% INJ 100 ML IV ONE (00:45)
[2016-11-29 01:02] LABS: REVIEW FLAG FINAL
[2016-11-29 01:11] VITALS: BP 108/66; PULSE 76; RESP 16; O2SAT 99
[2016-11-29] MEDS ORDERED: IOHEXOL 350 MG/ML 10 ML VIAL (for RAD DIAG) IVCONTRAST ONE (01:49)
[2016-11-29 01:54] VITALS: BP 109/77; PULSE 86; RESP 16; O2SAT 97
--- NOTE | 2016-11-29 01:59 | RADRPT ---
EXAM DATE/TIME: 11/29/2016 01:23 CORRECTION Corrected on: December 04, 2016; Corrected IV contrast [place] COMPARISON: No previous studies available for comparison. INDICATIONS : Lower abdominal pain. IV CONTRAST: 100 cc Omnipaque 350 (iohexol) IV ORAL CONTRAST: No oral contrast ingested. RADIATION DOSE: 6.67 CTDIvol (mGy) MEDICAL HISTORY : Hypertension. Sickle Cell disease. SURGICAL HISTORY : Cholecystectomy. ENCOUNTER: Initial ACUITY: 1 week PAIN SCALE: 8/10 LOCATION: Bilateral lower quadrant TECHNIQUE: Volumetric scanning of the abdomen and pelvis was performed. Using automated exposure control and ad justment of the mA and/or kV according to patient size, radiation dose was kept as low as reasonably achievable to obtain optimal diagnostic quality images. DICOM format image data is available electro nically for review and comparison. FINDINGS: Examination of the lung bases demonstrates no abnormality. No pleural fluid is identified. No pulmona ry nodules are present. The liver is enlarged with calcification the spleen characteristic of sickle cell diseaseThe gallbladder is absent. The pancreas demonstrates normal contour without evidence of m ass or ductal dilatation. The adrenal glands and kidneys appear normal bilaterally. No hydronephrosis or mass lesions are identified. Examination of the right lower quadrant demonstrates no abnormality. The appendix is identified and appears normal. Examination of the pelvis demonstrates no evidence of free fluid or pelvic mass. No abnormally enlarg ed inguinal or retroperitoneal lymph nodes are present. The bladder is unremarkable. Intrauterine dev ice is present within the uterus. A small amount of fluid is present within the pelvis within the phy siologic range. CONCLUSION: 1. No evidence of acute abdominal or pelvic process. No masses are identified. Jevon Cho MD on November 29, 2016 at 1:54 Board Certified Radiologist. This report was verified electronically.
[2016-11-29] MEDS ORDERED: HYDROmorphone HCL PF 1 MG/ML VIAL IV PUSH ONE (02:15)
[2016-11-29] MEDS ORDERED: diphenhydrAMINE HCL 50 MG/ML VIAL IV PUSH ONE (02:15)
[2016-11-29 02:38] VITALS: RESP 18
[2016-11-29] MEDS ORDERED: CIPR-9 PO (02:50)
[2016-11-29 03:08] VITALS: BP 114/76
== END 2016-11-29 03:10 | disposition home or self-care (01) ==
LOC: PHED 22:59
DX: N39.0 Urinary tract infection, site not specified (principal); D57.3 Sickle-cell trait; I10 Essential (primary) hypertension; Z79.01 Long term (current) use of anticoagulants
CPT/HCPCS: 74177; 80053; 81001; 83690; 84703; 85007; 85027; 85044; 87086; 96361; 96365; 96375; 96376; 99285; J0696; J1170; J1200; J1642; J2405; J7030; Q9967

== ENCOUNTER 2016-12-27 12:52 | Emergency (ER) | payer OTHER ==
[~2016-12-27] VITALS: Ht 170.2 cm; Wt 62.0 kg
[~2016-12-27 12:52] MED LIST changes: +CIPR-9 PO; +FOLI400T PO; +MIREIUD I-UTERINE; -OXYC-395 PO
[2016-12-27 12:54] VITALS: BP 110/58; PULSE 82; RESP 20; TEMP 98.4; O2SAT 99
[2016-12-27] MEDS ORDERED: SODIUM CHLOR 0.9% 1000 ML INJ 1,000 ML IV ONE ×2 (14:06→16:00)
--- NOTE | 2016-12-27 14:14 | PD ---
HPI Chief Complaint: Sickle Cell Time Seen by Provider: 14:08 Travel History International Travel<30 days: No Contact w/Intl Traveler<30days: No Traveled to known affect area: No History of Present Illness HPI 26-year-old female with history of sickle cell anemia presents to the ED for evaluation of 8/10 abdominal pain, right leg pain, headache, chest pain. Gradual onset this morning. No alleviating or exacerbating factors reported. Patient endorses accompanying dizziness, palpitations, nausea. She denies vision changes, shortness of breath, vomiting, changes in bowel habits. Patient reports last menstrual period in September. She states that her periods are normally irregular and denies risk of . She undergoes plasmapheresis monthly with Dr. Chen. [facility] Past Medical History Hx Anticoagulant Therapy: Yes (LOVENOX 100 MG DAILY) Anemia: Yes (sickle cell) Arthritis: No Asthma: No Autoimmune Disease: No Blood Disorders: Yes (SICKLE CELL) Anxiety: No Depression: No Heart Rhythm Problems: No Cancer: No Cardiovascular Problems: Yes (PUL HYPERTENSION) High Cholesterol: No Chemotherapy: No Chest Pain: Yes Congestive Heart Failure: No COPD: No Cerebrovascular Accident: No Diabetes: No Diminished Hearing: No Endocrine: No Gastrointestinal Disorders: No GERD: No Genitourinary: No Headaches: Yes Hiatal Hernia: No Heparin Induced Thrombocytopen: No Hypertension: Yes (pulmonary) Immune Disorder: No Implanted Vascular Access Dvce: Yes (RIGHT INFUSAPORT) Kidney Stones: No Musculoskeletal: No Neurologic: No Psychiatric: No Reproductive: Yes (PE 2013) Respiratory: Yes (PE 2013) Immunizations Current: Yes Migraines: No Pneumonia: Yes Radiation Therapy: No Renal Failure: No Seizures: No Sickle Cell Disease: Yes Sleep Apnea: No Thyroid Disease: No Ulcer: No ?: Unknown LMP: september 2016 : 0 Para: 0 Miscarriage: 0 : 0 Past Surgical History Abdominal Surgery: No AICD: No Arteriovenous Shunt: No Body Medical Devices: right chest POWER PORT Cardiac Surgery: No Cholecystectomy: Yes Ear Surgery: No Endocrine Surgery: No Eye Surgery: No Genitourinary Surgery: No Gynecologic Surgery: No Hysterectomy: No Insulin Pump: No Joint Replacement: No Neurologic Surgery: No Oral Surgery: No Pacemaker: No Thoracic Surgery: No Other Surgery: Yes (Gallbladder) Social History Alcohol Use: No Tobacco Use: No Substance Use: No Allergies-Medications (Allergen,Severity, Reaction): Coded Allergies: pineapple (Unverified Allergy, Severe, 11/29/16) FACE SWELLING ITCHING Reported Meds & Prescriptions Reported Meds & Active Scripts Active Bactrim DS (Sulfamethoxazole-Trimethoprim) 800-160 Mg Tab 1 Tab PO BID Reported Oxycodone (Oxycodone HCl) 10 Mg Tab 10 Mg PO Q4HR Lovenox Inj (Enoxaparin Sodium) 100 Mg/Ml Syr 100 Mg SQ DAILY Mirena (Levonorgestrel (Iud)) 20 Mcg/24 Hour (5 Years) Iud 52 Mg I-UTERINE ONCE Folic Acid 0.4 Mg Tab 1 Mg PO DAILY Hydrea (Hydroxyurea) 500 Mg Cap 500 Mg PO DAILY Review of Systems Except as stated in HPI: all other systems reviewed are Neg Physical Exam Narrative GENERAL: Well-nourished, well-developed thin black female in no acute distress. SKIN: Focused skin assessment warm/dry. HEAD: Normocephalic. Atraumatic. EYES: No scleral icterus. No injection or drainage. PERRLA. EOMI. NECK: Supple, trachea midline. No JVD or lymphadenopathy. CARDIOVASCULAR: Regular rate and rhythm without murmurs, gallops, or rubs. RESPIRATORY: Breath sounds clear and equal bilaterally. No accessory muscle use. GASTROINTESTINAL: Abdomen soft, nondistended, tender to palpation in the right upper quadrant. No palpable hepatosplenomegaly. Active bowel sounds. MUSCULOSKELETAL: No cyanosis, or edema. Moves extremities spontaneously. Moves easily from sitting to lying down positions. NEUROLOGICAL: Awake and alert. Cranial nerves II through XII intact. Motor and sensory grossly within normal limits. Five out of 5 muscle strength in all muscle groups. Normal speech. BACK: Nontender without obvious deformity. No CVA tenderness. Data Data Last Documented VS Vital Signs Date Time Temp Pulse Resp B/P (MAP) Pulse Ox O2 Delivery O2 Flow Rate FiO2 12/27/16 17:23 (77) 12/27/16 14:22 81 18 99 12/27/16 14:22 Room Air 12/27/16 12:54 98.4 Orders Orders C-Reactive Protein (Crp) (12/27/16 14:06) Complete Blood Count With Diff (12/27/16 14:06) Comprehensive Metabolic Panel (12/27/16 14:06) Retic Count (12/27/16 14:06) Urinalysis - C+S If Indicated (12/27/16 14:06) Chest, Single Ap (12/27/16 14:06) Ecg Monitoring (12/27/16 14:06) Iv Access Insert/Monitor (12/27/16 14:06) Oximetry (12/27/16 14:06) Ondansetron Inj (Zofran Inj) (12/27/16 14:15) Sodium Chloride 0.9% Flush (Ns Flush) (12/27/16 14:15) Sodium Chlor 0.9% 1000 Ml Inj (Ns 1000 M (12/27/16 14:06) Ed Urine Pregnancytest Poc (12/27/16 14:06) Hydromorphone Pf Inj (Dilaudid Pf Inj) (12/27/16 14:15) Electrocardiogram (12/27/16 ) Diphenhydramine Inj (Benadryl Inj) (12/27/16 14:30) Heparin Central Flush (Heparin Central F (12/27/16 14:30) Urine Culture (12/27/16 14:20) Hydromorphone Pf Inj (Dilaudid Pf Inj) (12/27/16 16:00) Sodium Chlor 0.9% 1000 Ml Inj (Ns 1000 M (12/27/16 16:00) Ed Discharge Order (12/27/16 17:06) Labs Laboratory Tests Test 12/27/16 14:20 12/27/16 14:25 Urine Color YELLOW Urine Turbidity CLEAR Urine pH 6.5 Urine Specific [place] 1.011 Urine Protein NEG mg/dL Urine Glucose (UA) NEG mg/dL Urine Ketones NEG mg/dL Urine Occult Blood NEG Urine Nitrite NEG Urine Bilirubin NEG Urine Urobilinogen LESS THAN 2.0 MG/DL Urine Leukocyte Esterase LARGE Urine RBC 3 /hpf Urine WBC 13 /hpf Urine Squamous Epithelial Cells 1 /hpf Urine Amorphous Sediment RARE Urine Mucus FEW /lpf Microscopic Urinalysis Comment CULTURE INDICATED White Blood Count 12.0 TH/MM3 Red Blood Count 2.29 MIL/MM3 Hemoglobin 7.3 GM/DL Hematocrit 20.8 % Mean Corpuscular Volume 90.8 FL Mean Corpuscular Hemoglobin 31.9 PG Mean Corpuscular Hemoglobin Concent 35.2 % Red Cell Distribution Width 24.1 % Platelet Count 468 TH/MM3 Mean Platelet Volume 7.8 FL Neutrophils (%) (Auto) 66.3 % Lymphocytes (%) (Auto) 22.6 % Monocytes (%) (Auto) 8.5 % Eosinophils (%) (Auto) 1.8 % Basophils (%) (Auto) 0.8 % Neutrophils # (Auto) 7.9 TH/MM3 Lymphocytes # (Auto) 2.7 TH/MM3 Monocytes # (Auto) 1.0 TH/MM3 Eosinophils # (Auto) 0.2 TH/MM3 Basophils # (Auto) 0.1 TH/MM3 CBC Comment AUTO DIFF Differential Total Cells Counted 100 Neutrophils % (Manual) 69 % Lymphocytes % 23 % Monocytes % 6 % Eosinophils % 2 % Neutrophils # (Manual) 8.3 TH/MM3 Nucleated Red Blood Cells 4 /100 WBC Differential Comment FINAL DIFF MANUAL Platelet Estimate HIGH Platelet Morphology Comment GIANT Polychromasia 3.2 % Sickle Cells 1+ Target Cells 1+ Reticulocyte Count 20.7 % Absolute Reticulocyte Count 474.5 MIL/L Blood Urea Nitrogen 5 MG/DL Creatinine 0.51 MG/DL Random Glucose 85 MG/DL Total Protein 7.9 GM/DL Albumin 4.6 GM/DL Calcium Level 8.5 MG/DL Alkaline Phosphatase 59 U/L Aspartate Amino Transf (AST/SGOT) 35 U/L Alanine Aminotransferase (ALT/SGPT) 37 U/L Total Bilirubin 2.8 MG/DL Sodium Level 137 MEQ/L Potassium Level 4.6 MEQ/L Chloride Level 107 MEQ/L Carbon Dioxide Level 23.9 MEQ/L Anion Gap 6 MEQ/L Estimat Glomerular Filtration Rate 178 ML/MIN C-Reactive Protein LESS THAN 0.29 MG/DL MDM Medical Decision Making Medical Screen Exam Complete: Yes Emergency Medical Condition: Yes Differential Diagnosis Sickle cell crisis versus chronic pain versus metabolic derangement versus Narrative Course 26-year-old female with history of sickle cell anemia presents to the ED for evaluation of 8/10 abdominal pain, right leg pain, headache, chest pain. Gradual onset this morning. No alleviating or exacerbating factors reported. Patient endorses accompanying dizziness, palpitations, nausea. She denies vision changes, shortness of breath, vomiting, changes in bowel habits. Patient reports last menstrual period in September. She states that her periods are normally irregular and denies risk of . She undergoes plasmapheresis monthly with Dr. Chen. Vitals reviewed. Physical exam reveals a nontoxic-appearing black female in no acute distress. Chest tenderness to palpation in the right upper quadrant of the abdomen but the exam is otherwise unremarkable. IV was established. Patient was administered 1 L saline, 1 mg Dilaudid, 25 mg Benadryl IV. EKG rate 69, sinus rhythm. MA interval 179, QRS 77, QTC 43 ms. Normal axis. No acute ST changes. Reviewed by Dr. Vincent. CXR: No acute disease per radiology read. Urine test negative CBC: Moderate elevation of the white count. Hemoglobin 7.3, near baseline. Hematocrit 20.8 CMP: Mildly elevated bilirubin. UA large leukocyte esterase, 13 WBCs. Culture pending. On recheck patient states her pain is improved but not completely resolved. She was administered a second liter of saline, 1 mg Dilaudid IV. On recheck patient states her symptoms are greatly improved. We discussed the results of the workup. She states that she has an appointment with Dr. Chen in 3 days. She is prescribed a short course of Bactrim, instructed to take the medication as prescribed, follow up with Dr. Chen as planned. She indicated understanding of instructions and is agreeable to care plan. She is stable and discharged home. Diagnosis Primary Impression: Sickle cell anemia with crisis Additional Impression: Urinary tract infection Qualified Codes: N39.0 - Urinary tract infection, site not specified Referrals: Anabella Chen MD Patient Instructions: General Instructions, Urinary Tract Infection in Women ( ED) Additional Instructions: Rest, hydrate. Resume normal, gentle activities as tolerated. Take all antibiotics as they're prescribed for urinary tract infection. Follow-up with Dr. Chen as planned. Return to the ED for any urgent or emergent medical condition. Scripts Sulfamethoxazole-Trimethoprim (Bactrim DS) 800-160 Mg Tab 1 TAB PO BID for Infection, #6 TAB 0 Refills Prov: Darby Vincent MD 12/27/16 Disposition: 01 DISCHARGE HOME Condition: Stable Miriam Mazariegos Dec 27, 2016 14:14
[2016-12-27] MEDS ORDERED: HYDROmorphone HCL PF 1 MG/ML VIAL IV PUSH ONE ×2 (14:15→16:00)
[2016-12-27] MEDS ORDERED: ONDANSETRON HCL 4 MG/2 ML VIAL IVP ONE (14:15)
[2016-12-27] MEDS ORDERED: SODIUM CHLORIDE 0.9% FLUSH 10 ML FLUSH IVF PRN (14:15)
[2016-12-27 14:22] VITALS: BP 102/65; PULSE 81; RESP 18; O2SAT 99
--- NOTE | 2016-12-27 14:29 | RADRPT ---
EXAM DATE/TIME: 12/27/2016 14:21 [facility] COMPARISON: CHEST SINGLE AP, May 10, 2016, 12:50. INDICATIONS : Short of breath and chest pain. MEDICAL HISTORY : Sickle Cell disease. Hypertension SURGICAL HISTORY : Cholecystectomy. Port for sickle cell. ENCOUNTER: Initial ACUITY: 1 day PAIN SCORE: 8/10 LOCATION: Bilateral chest FINDINGS: A single view of the chest demonstrates the lungs to be symmetrically aerated without evidence of mas s, infiltrate or effusion. [id number] in good position. The cardiomediastinal contours are unrema rkable. Osseous structures are intact. CONCLUSION: No acute disease. Harish Travis MD FACR on December 27, 2016 at 14:27 Board Certified Radiologist. This report was verified electronically.
[2016-12-27] MEDS ORDERED: diphenhydrAMINE HCL 50 MG/ML VIAL IV PUSH ONE (14:30)
[2016-12-27 15:10] LABS: AUTOMATED NEUTROPHIL # 7.9 TH/MM3 (1.8-7.7); BASOPHIL # 0.1 TH/MM3 (0-0.2); BASOPHIL % 0.8 % (0.0-2.0); EOSINOPHIL # 0.2 TH/MM3 (0-0.4); EOSINOPHIL % 1.8 % (0.0-4.0); LYMPH % 22.6 % (9.0-44.0); LYMPHOCYTE # 2.7 TH/MM3 (1.0-4.8); MEAN CELL VOLUME 90.8 FL (80.0-100.0); MEAN CORPUSCULAR HEMOGLOBIN 31.9 PG (27.0-34.0); MEAN CORPUSCULAR HGB CONC 35.2 % (32.0-36.0); MONO % 8.5 % (0.0-8.0); NEUT % 66.3 % (16.0-70.0); PLATELET COUNT 468 TH/MM3 (150-450); RED BLOOD COUNT 2.29 MIL/MM3 (4.00-5.30); RED CELL DISTRIBUTION WIDTH 24.1 % (11.6-17.2); RETIC % 20.7 % (0.4-3.0)
[2016-12-27 15:11] LABS: BLOOD, URINE NEG (NEG); COMMENT (UR) CULTURE INDICATED; CULTURE IF INDICATED CULTURE INDICATED; GLUCOSE,URINE NEG (NEG); KETONE, URINE NEG (NEG); MUCUS URINE FEW /lpf (OCC); NITRITE,URINE NEG (NEG); PH, URINE 6.5 (5.0-8.5); SQUAMOUS EPITHELIAL CELL URINE 1 /hpf (0-5); URINE COLOR YELLOW (YELLW/STRAW)
[2016-12-27 15:15] LABS: HEMO FLAGS AUTO DIFF; REVIEW FLAG AUTO DIFF
[2016-12-27 15:20] LABS: HEMATOCRIT 20.8 % (35.0-46.0)
[2016-12-27 15:26] LABS: ALT (GPT) 37 U/L (10-53); ANION GAP 6 MEQ/L (5-15); AST (GOT) 35 U/L (15-37); BICARBONATE 23.9 MEQ/L (21.0-32.0); BLOOD UREA NITROGEN 5 MG/DL (7-18); CHLORIDE 107 MEQ/L (98-107); GLOMERULAR FILTRATION RATE 178 ML/MIN (>89); POTASSIUM 4.6 MEQ/L (3.5-5.1); SODIUM (NA) 137 MEQ/L (136-145)
[2016-12-27 15:29] LABS: ALKALINE PHOSPHATASE 59 U/L (45-117); TOTAL BILIRUBIN ADULT 2.8 MG/DL (0.2-1.0)
[2016-12-27 15:56] LABS: CORRECTED NUCLEATED RBC 4 /100 WBC (0-0); EOSINOPHILS 2 % (0-4); NEUTROPHIL # MANUAL DIFF 8.3 TH/MM3 (1.8-7.7); POLYS (SEG NEUTROPHILS) 69 % (16-70); WBC DIFF SAMPLE 100
[2016-12-27 15:59] LABS: POLYCHROMASIA 3.2 % (0.0-1.9)
[2016-12-27 16:00] LABS: SICKLE CELLS 1+ (NORMAL); TARGET CELLS 1+ (NORMAL)
[2016-12-27 16:01] LABS: PLATELET ESTIMATE SMEAR HIGH (NORMAL); PLATELET MORPHOLOGY GIANT (NORMAL); SCAN/DIFF FINAL DIFF MANUAL
[2016-12-27] MEDS ORDERED: ENOX100P SQ (16:06)
[2016-12-27] MEDS ORDERED: OXYC-395 PO (16:06)
[2016-12-27] MEDS ORDERED: BACT800T5 PO (17:06)
--- NOTE | 2016-12-28 17:56 | EKG ---
Date Performed: 12/27/2016 Time Performed: 14:15:53 PTAGE: 26 years EKG: Sinus rhythm NORMAL ECG WARNING: DATA QUALITY MAY AFFECT INTERPRETATION PREVIOUS TRACING : 08/11/2015 16.56 Since the prior tracing, the nonspecific anterior T-w ave changes have resolved. DOCTOR: Katharine Perez Interpretating Date/Time 12/28/2016 17:54:19
== END 2016-12-27 17:30 | disposition home or self-care (01) ==
LOC: NEPC 12:52
DX: D57.00 Hb-SS disease with crisis, unspecified (principal); N39.0 Urinary tract infection, site not specified; I27.20 Pulmonary hypertension, unspecified; Z86.711 Personal history of pulmonary embolism; Z79.01 Long term (current) use of anticoagulants
CPT/HCPCS: 71010; 80053; 81001; 84703; 85007; 85027; 85044; 86140; 87086; 93005; 96361; 96374; 96375; 96376; 99285; J1170; J1200; J1642; J2405; J7030

== ENCOUNTER 2017-02-16 15:51 | Emergency (ER) | payer OTHER ==
[~2017-02-16] VITALS: Ht 170.2 cm; Wt 60.5 kg
[~2017-02-16 15:51] MED LIST changes: +BACT800T5 PO; -CIPR-9 PO; +ENOX100P SQ; -ENOX60IN SQ; +OXYC-395 PO
[2017-02-16 15:52] VITALS: BP 109/66; PULSE 109; RESP 20; TEMP 98.3; O2SAT 99
--- NOTE | 2017-02-16 16:38 | PD ---
HPI Chief Complaint: Sickle Cell Time Seen by Provider: 16:37 Travel History International Travel<30 days: No Contact w/Intl Traveler<30days: No Traveled to known affect area: No History of Present Illness HPI 26-year-old female with known sickle cell disease came to the emergency room with history of chest pain. The chest x-ray was ordered, performed prior to patient getting here. Started this morning. Hurts in the center of the chest. Worse on movement. No radiation of the pain. PFSH Past Medical History Narrative Medical List of her past medical, surgical, social and family history is reviewed from the nursing note. Hx Anticoagulant Therapy: Yes (LOVENOX 100 MG DAILY) Anemia: Yes (sickle cell) Arthritis: No Asthma: No Autoimmune Disease: No Blood Disorders: Yes (SICKLE CELL) Anxiety: No Depression: No Heart Rhythm Problems: No Cancer: No Cardiovascular Problems: Yes (PUL HYPERTENSION) High Cholesterol: No Chemotherapy: No Chest Pain: Yes Congestive Heart Failure: No COPD: No Cerebrovascular Accident: No Diabetes: No Diminished Hearing: No Endocrine: No Gastrointestinal Disorders: No GERD: No Genitourinary: No Headaches: Yes Hiatal Hernia: No Heparin Induced Thrombocytopen: No Hypertension: Yes (pulmonary) Immune Disorder: No Implanted Vascular Access Dvce: Yes (RIGHT INFUSAPORT) Kidney Stones: No Musculoskeletal: No Neurologic: No Psychiatric: No Reproductive: Yes (PE 2013) Respiratory: Yes (PE 2013) Immunizations Current: Yes Migraines: No Pneumonia: Yes Radiation Therapy: No Renal Failure: No Seizures: No Sickle Cell Disease: Yes Sleep Apnea: No Thyroid Disease: No Ulcer: No ?: Not LMP: 01/25/17 : 0 Para: 0 Miscarriage: 0 : 0 Past Surgical History Abdominal Surgery: No AICD: No Arteriovenous Shunt: No Body Medical Devices: right chest POWER PORT Cardiac Surgery: No Cholecystectomy: Yes Ear Surgery: No Endocrine Surgery: No Eye Surgery: No Genitourinary Surgery: No Gynecologic Surgery: No Hysterectomy: No Insulin Pump: No Joint Replacement: No Neurologic Surgery: No Oral Surgery: No Pacemaker: No Thoracic Surgery: No Other Surgery: Yes (Gallbladder) Social History Alcohol Use: No Tobacco Use: No Substance Use: No Allergies-Medications (Allergen,Severity, Reaction): Coded Allergies: pineapple (Unverified Allergy, Severe, 10/18/17) FACE SWELLING ITCHING Comments List of her allergies reviewed from the nursing note. Reported Meds & Prescriptions Reported Meds & Active Scripts Active Bactrim DS (Sulfamethoxazole-Trimethoprim) 800-160 Mg Tab 1 Tab PO BID Reported Oxycodone (Oxycodone HCl) 10 Mg Tab 10 Mg PO Q4HR Lovenox Inj (Enoxaparin Sodium) 100 Mg/Ml Syr 100 Mg SQ DAILY Mirena (Levonorgestrel (Iud)) 20 Mcg/24 Hour (5 Years) Iud 52 Mg I-UTERINE ONCE Folic Acid 0.4 Mg Tab 1 Mg PO DAILY Hydrea (Hydroxyurea) 500 Mg Cap 500 Mg PO DAILY Narrative Medication List of her home medications reviewed from the nursing note. Review of Systems Except as stated in HPI: all other systems reviewed are Neg Cardiovascular: Positive: Chest Pain or Discomfort Physical Exam Narrative GENERAL: Awake, alert, no obvious distress SKIN: Focused skin assessment warm/dry. HEAD: Atraumatic. Normocephalic. EYES: Pupils equal and round. No scleral icterus. No injection or drainage. ENT: No nasal bleeding or discharge. Mucous membranes pink and moist. NECK: Trachea midline. No JVD. CARDIOVASCULAR: Regular rate and rhythm. No murmur appreciated. RESPIRATORY: No accessory muscle use. Clear to auscultation. Breath sounds equal bilaterally. GASTROINTESTINAL: Abdomen soft, non-tender, nondistended. Hepatic and splenic margins not palpable. MUSCULOSKELETAL: No obvious deformities. No clubbing. No cyanosis. No edema. NEUROLOGICAL: Awake and alert. No obvious cranial nerve deficits. Motor grossly within normal limits. Normal speech. PSYCHIATRIC: Appropriate mood and affect; insight and judgment normal. Data Data Last Documented VS Vital Signs Date Time Temp Pulse Resp B/P (MAP) Pulse Ox O2 Delivery O2 Flow Rate FiO2 02/16/17 19:11 02/16/17 18:11 18 02/16/17 15:52 98.3 109 99 Room Air Orders Orders Chest, Pa & Lat (02/16/17 ) Complete Blood Count With Diff (02/16/17 16:39) Retic Count (02/16/17 16:39) Electrocardiogram (02/16/17 ) Troponin I (02/16/17 16:41) Basic Metabolic Panel (Bmp) (02/16/17 16:41) Morphine Inj (Morphine Inj) (02/16/17 17:30) Sodium Chlor 0.9% 1000 Ml Inj (Ns 1000 M (02/16/17 17:30) Ed Discharge Order (02/16/17 18:21) Morphine Inj (Morphine Inj) (02/16/17 18:30) Heparin Central Flush (Heparin Central F (02/16/17 19:00) Labs Laboratory Tests Test 02/16/17 17:01 White Blood Count 11.0 TH/MM3 Red Blood Count 2.86 MIL/MM3 Hemoglobin 8.3 GM/DL Hematocrit 24.9 % Mean Corpuscular Volume 86.9 FL Mean Corpuscular Hemoglobin 28.8 PG Mean Corpuscular Hemoglobin Concent 33.2 % Red Cell Distribution Width 16.2 % Platelet Count 541 TH/MM3 Mean Platelet Volume 7.0 FL Neutrophils (%) (Auto) 67.0 % Lymphocytes (%) (Auto) 17.8 % Monocytes (%) (Auto) 12.3 % Eosinophils (%) (Auto) 1.9 % Basophils (%) (Auto) 1.0 % Neutrophils # (Auto) 7.4 TH/MM3 Lymphocytes # (Auto) 2.0 TH/MM3 Monocytes # (Auto) 1.4 TH/MM3 Eosinophils # (Auto) 0.2 TH/MM3 Basophils # (Auto) 0.1 TH/MM3 CBC Comment DIFF FINAL Differential Comment Reticulocyte Count 2.7 % Absolute Reticulocyte Count 77.7 MIL/L Blood Urea Nitrogen 3 MG/DL Creatinine 0.58 MG/DL Random Glucose 81 MG/DL Calcium Level 8.5 MG/DL Sodium Level 138 MEQ/L Potassium Level 3.4 MEQ/L Chloride Level 106 MEQ/L Carbon Dioxide Level 24.3 MEQ/L Anion Gap 8 MEQ/L Estimat Glomerular Filtration Rate 153 ML/MIN Troponin I LESS THAN 0.02 NG/ML MDM Medical Decision Making Medical Screen Exam Complete: Yes Emergency Medical Condition: Yes Medical Record Reviewed: Yes Interpretation(s) Twelve-lead EKG was reviewed by me. Normal sinus rhythm, normal axis, nonspecific ST-T wave changes. Heart rate of 94 bpm. Differential Diagnosis ACS, nonspecific chest pain Narrative Course 5:29 PM awaiting for the blood test result. Case has been signed over to the oncoming ER physician. Procedures EKG Prior to Arrival: Yordan Kam MD Feb 16, 2017 16:38
[2017-02-16 17:25] LABS: AUTOMATED NEUTROPHIL # 7.4 TH/MM3 (1.8-7.7); BASOPHIL # 0.1 TH/MM3 (0-0.2); EOSINOPHIL # 0.2 TH/MM3 (0-0.4); EOSINOPHIL % 1.9 % (0.0-4.0); HEMATOCRIT 24.9 % (35.0-46.0); HEMOGLOBIN 8.3 GM/DL (11.6-15.3); LYMPH % 17.8 % (9.0-44.0); MEAN CELL VOLUME 86.9 FL (80.0-100.0); MEAN CORPUSCULAR HEMOGLOBIN 28.8 PG (27.0-34.0); MEAN CORPUSCULAR HGB CONC 33.2 % (32.0-36.0); MONO % 12.3 % (0.0-8.0); MONOCYTE # 1.4 TH/MM3 (0-0.9); PLATELET COUNT 541 TH/MM3 (150-450); RED BLOOD COUNT 2.86 MIL/MM3 (4.00-5.30); RED CELL DISTRIBUTION WIDTH 16.2 % (11.6-17.2); RETIC # 77.7 MIL/L (20.0-150.0); RETIC % 2.7 % (0.4-3.0)
--- NOTE | 2017-02-16 17:26 | RADRPT ---
EXAM DATE/TIME: 02/16/2017 16:38 [facility] COMPARISON: CHEST PA & LAT, December 17, 2015, 8:31. INDICATIONS : Shortness of breath. MEDICAL HISTORY : Sickle Cell disease. Hypertension SURGICAL HISTORY : Cholecystectomy. Port for sickle cell. ENCOUNTER: Initial ACUITY: 2 days PAIN SCORE: 7/10 LOCATION: Bilateral chest. FINDINGS: The cardiac silhouette is enlarged in transverse diameter. The lungs are free of acute parenchymal op acity. No effusions are identified. [id number] is in place via right internal jugular approach wit h its tip in the superior vena cava. The lungs are free of acute parenchymal opacity. No effusions ar e identified. CONCLUSION: 1. Cardiomegaly. No acute pulmonary disease. Jevon Cho MD on February 16, 2017 at 17:24 Board Certified Radiologist. This report was verified electronically.
[2017-02-16] MEDS ORDERED: MORPHINE SULFATE 2 MG/ML INJ IV PUSH ONE ×2 (17:30→18:30)
[2017-02-16] MEDS ORDERED: SODIUM CHLOR 0.9% 1000 ML INJ 1,000 ML IV ONE (17:30)
[2017-02-16 17:52] LABS: BICARBONATE 24.3 MEQ/L (21.0-32.0); BLOOD UREA NITROGEN 3 MG/DL (7-18); CALCIUM 8.5 MG/DL (8.5-10.1); CHLORIDE 106 MEQ/L (98-107); CREATININE 0.58 MG/DL (0.50-1.00); GLOMERULAR FILTRATION RATE 153 ML/MIN (>89); GLUCOSE,RANDOM 81 MG/DL (74-106); SODIUM (NA) 138 MEQ/L (136-145)
[2017-02-16 17:56] LABS: TROPONIN I LESS THAN 0.02 NG/ML (0.02-0.05)
[2017-02-16 18:11] VITALS: RESP 18
--- NOTE | 2017-02-16 18:25 | PD ---
Data Data Last Documented VS Vital Signs Date Time Temp Pulse Resp B/P (MAP) Pulse Ox O2 Delivery O2 Flow Rate FiO2 02/16/17 18:11 18 02/16/17 15:52 98.3 109 109/66 (80) 99 Room Air Orders Orders Chest, Pa & Lat (02/16/17 ) Complete Blood Count With Diff (02/16/17 16:39) Retic Count (02/16/17 16:39) Electrocardiogram (02/16/17 ) Troponin I (02/16/17 16:41) Basic Metabolic Panel (Bmp) (02/16/17 16:41) Morphine Inj (Morphine Inj) (02/16/17 17:30) Sodium Chlor 0.9% 1000 Ml Inj (Ns 1000 M (02/16/17 17:30) Ed Discharge Order (02/16/17 18:21) Morphine Inj (Morphine Inj) (02/16/17 18:30) Heparin Central Flush (Heparin Central F (02/16/17 19:00) Labs Laboratory Tests Test 02/16/17 17:01 White Blood Count 11.0 TH/MM3 Red Blood Count 2.86 MIL/MM3 Hemoglobin 8.3 GM/DL Hematocrit 24.9 % Mean Corpuscular Volume 86.9 FL Mean Corpuscular Hemoglobin 28.8 PG Mean Corpuscular Hemoglobin Concent 33.2 % Red Cell Distribution Width 16.2 % Platelet Count 541 TH/MM3 Mean Platelet Volume 7.0 FL Neutrophils (%) (Auto) 67.0 % Lymphocytes (%) (Auto) 17.8 % Monocytes (%) (Auto) 12.3 % Eosinophils (%) (Auto) 1.9 % Basophils (%) (Auto) 1.0 % Neutrophils # (Auto) 7.4 TH/MM3 Lymphocytes # (Auto) 2.0 TH/MM3 Monocytes # (Auto) 1.4 TH/MM3 Eosinophils # (Auto) 0.2 TH/MM3 Basophils # (Auto) 0.1 TH/MM3 CBC Comment DIFF FINAL Differential Comment Reticulocyte Count 2.7 % Absolute Reticulocyte Count 77.7 MIL/L Blood Urea Nitrogen 3 MG/DL Creatinine 0.58 MG/DL Random Glucose 81 MG/DL Calcium Level 8.5 MG/DL Sodium Level 138 MEQ/L Potassium Level 3.4 MEQ/L Chloride Level 106 MEQ/L Carbon Dioxide Level 24.3 MEQ/L Anion Gap 8 MEQ/L Estimat Glomerular Filtration Rate 153 ML/MIN Troponin I LESS THAN 0.02 NG/ML [id number] Medical Record Reviewed: Yes Supervised Visit with AURELIO: No Narrative Course CBC & BMP Diagram 02/16/17 17:01 Calcium Level 8.5 Last 24 hours Impressions Chest X-Ray 02/16/17 0000 Signed Impressions: Service Date/Time: Thursday, February 16, 2017 16:38 - CONCLUSION: 1. Cardiomegaly. No acute pulmonary disease. Jevon Cho MD Please refer to the providers note. The patient is resting comfortably and feels better, is alert and in no distress. The patients results and examination findings were discussed. The repeat examination is unremarkable and benign. The history, exam, diagnostic testing, and current condition do not suggest any significant pathology to warrant further testing, continued ED treatment, admission, or surgical evaluation at this point. The vital signs have been stable. The patient does not have uncontrollable pain, intractable vomiting, or other significant symptoms. The patient's condition is stable and appropriate for discharge. The patient will pursue further outpatient evaluation with a primary care physician or other designated or consulting physician as indicated in the discharge instructions. The patient expressed understanding and was agreeable with this plan. Diagnosis Primary Impression: Sickle cell anemia with crisis Med/Other Pt SpecificInfo: No Change to Meds Disposition: 01 DISCHARGE HOME Condition: Stable Josiah Arriaza MD Feb 16, 2017 18:25
[2017-02-16] MEDS ORDERED: MORPHINE SULFATE 4 MG/ML INJ IV PUSH ONE (18:30)
--- NOTE | 2017-02-17 13:05 | EKG ---
Date Performed: 02/16/2017 Time Performed: 16:52:45 PTAGE: 26 years EKG: Sinus rhythm POSSIBLE RIGHT VENTRICULAR CONDUCTION DELAY NONSPECIFIC T-WAVE ABNORMALITY BORDERLINE ECG Compared t o PREVIOUS TRACING , these minor changes are new. PREVIOUS TRACIN12/27/2016 14.15 DOCTOR: Kurt Scruggs Interpretating Date/Time 02/17/2017 13:03:18
== END 2017-02-16 19:25 | disposition home or self-care (01) ==
LOC: NEPD 15:51
DX: D57.00 Hb-SS disease with crisis, unspecified (principal)
CPT/HCPCS: 71046; 80048; 84484; 85025; 85044; 93005; 96361; 96374; 96376; 99285; J1642; J2270; J7030

== ENCOUNTER 2017-05-14 17:44 | Emergency (ER) | payer OTHER ==
[~2017-05-14] VITALS: Ht 170.2 cm; Wt 61.4 kg
[2017-05-14] VITALS (7 sets, daily range): BP systolic 103–125; BP diastolic 62–83; PULSE 75–91; RESP 16–20; TEMP 98.5–98.7; O2SAT 97–100
[2017-05-14] MEDS ORDERED: XARE20TA PO (18:41)
[2017-05-14] MEDS ORDERED: SODIUM CHLOR 0.9% 1000 ML INJ 1,000 ML IV ONE (18:56)
[2017-05-14] MEDS ORDERED: SODIUM CHLORIDE 0.9% FLUSH 10 ML FLUSH IVF PRN (19:00)
[2017-05-14] MEDS ORDERED: ONDANSETRON HCL 4 MG/2 ML VIAL IV PUSH ONE (19:15)
[2017-05-14] MEDS ORDERED: HYDROmorphone HCL PF 1 MG/ML VIAL IV PUSH ONE ×3 (19:15→22:00)
[2017-05-14] MEDS ORDERED: diphenhydrAMINE HCL 50 MG/ML VIAL IV PUSH ONE (19:15)
--- NOTE | 2017-05-14 19:18 | PD ---
HPI Chief Complaint: Sickle Cell Time Seen by Provider: 19:14 Travel History International Travel<30 days: No Contact w/Intl Traveler<30days: No Traveled to known affect area: No History of Present Illness HPI 26-year-old female patient with history of sickle cell disorder, presents to the ER today for 2 weeks history of body pains, nauseous, vomiting, states that she feels like her sickle cell crisis is not getting better despite p.o. 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 She denies any current chest pains, shortness of breath, coughing, or other symptoms. Modifying Factors: None Associated Signs & Symptoms: sickle cell crisis Risk Factors: Sickle cell disease PFSH Past Medical History Hx Anticoagulant Therapy: Yes Anemia: Yes (sickle cell) Arthritis: No Asthma: No Autoimmune Disease: No Blood Disorders: Yes (SICKLE CELL) Anxiety: No Depression: No Heart Rhythm Problems: No Cancer: No Cardiovascular Problems: Yes (PUL HYPERTENSION) High Cholesterol: No Chemotherapy: No Chest Pain: Yes Congestive Heart Failure: No COPD: No Cerebrovascular Accident: No Diabetes: No Diminished Hearing: No Endocrine: No Gastrointestinal Disorders: No GERD: No Genitourinary: No Headaches: Yes Hiatal Hernia: No Heparin Induced Thrombocytopen: No Hypertension: Yes (pulmonary) Immune Disorder: No Implanted Vascular Access Dvce: Yes (RIGHT INFUSAPORT) Kidney Stones: No Musculoskeletal: No Neurologic: No Psychiatric: No Reproductive: Yes (PE 2013) Respiratory: Yes (PE 2013) Immunizations Current: Yes Migraines: No Pneumonia: Yes Radiation Therapy: No Renal Failure: No Seizures: No Sickle Cell Disease: Yes Sleep Apnea: No Thyroid Disease: No Ulcer: No Tetanus Vaccination: Unknown Influenza Vaccination: No ?: Not LMP: APRIL 2017 : 0 Para: 0 Miscarriage: 0 : 0 Past Surgical History Abdominal Surgery: No AICD: No Arteriovenous Shunt: No Body Medical Devices: right chest POWER PORT Cardiac Surgery: No Cholecystectomy: Yes Ear Surgery: No Endocrine Surgery: No Eye Surgery: No Genitourinary Surgery: No Gynecologic Surgery: No Hysterectomy: No Insulin Pump: No Joint Replacement: No Neurologic Surgery: No Oral Surgery: No Pacemaker: No Thoracic Surgery: No Other Surgery: Yes (Gallbladder) Social History Alcohol Use: No Tobacco Use: No Substance Use: No Allergies-Medications (Allergen,Severity, Reaction): Coded Allergies: pineapple (Unverified Allergy, Severe, 05/14/17) FACE SWELLING ITCHING Reported Meds & Prescriptions Reported Meds & Active Scripts Active Reported Xarelto (Rivaroxaban) 20 Mg Tab 20 Mg PO DAILY Mirena (Levonorgestrel (Iud)) 20 Mcg/24 Hour (5 Years) Iud 52 Mg I-UTERINE ONCE Folic Acid 0.4 Mg Tab 1 Mg PO DAILY Hydrea (Hydroxyurea) 500 Mg Cap 500 Mg PO DAILY Review of Systems Except as stated in HPI: all other systems reviewed are Neg Physical Exam Narrative GENERAL: Well-developed young -[place] female patient currently in mild distress. Awake and oriented 3. SKIN: Focused skin assessment warm/dry. HEAD: Atraumatic. Normocephalic. EYES: Pupils equal and round. No scleral icterus. No injection or drainage. ENT: No nasal bleeding or discharge. Mucous membranes pink and moist. NECK: Trachea midline. No JVD. Supple. CARDIOVASCULAR: Regular rate and rhythm. No murmur appreciated. RESPIRATORY: No accessory muscle use. Clear to auscultation. Breath sounds equal bilaterally. GASTROINTESTINAL: Abdomen soft, non-tender, nondistended. Hepatic and splenic margins not palpable. MUSCULOSKELETAL: No obvious deformities. No clubbing. No cyanosis. No edema. NEUROLOGICAL: Awake and alert. No obvious cranial nerve deficits. Motor grossly within normal limits. Normal speech. PSYCHIATRIC: Appropriate mood and affect; insight and judgment normal. Data Data Last Documented VS Vital Signs Date Time Temp Pulse Resp B/P (MAP) Pulse Ox O2 Delivery O2 Flow Rate FiO2 05/14/17 20:40 86 20 117/83 (94) 100 05/14/17 19:58 98.5 Orders Orders Complete Blood Count With Diff (05/14/17 18:56) Comprehensive Metabolic Panel (05/14/17 18:56) Retic Count (05/14/17 18:56) Ecg Monitoring (05/14/17 18:56) Iv Access Insert/Monitor (05/14/17 18:56) Oximetry (05/14/17 18:56) Sodium Chloride 0.9% Flush (Ns Flush) (05/14/17 19:00) Sodium Chlor 0.9% 1000 Ml Inj (Ns 1000 M (05/14/17 18:56) Ondansetron Inj (Zofran Inj) (05/14/17 19:15) Diphenhydramine Inj (Benadryl Inj) (05/14/17 19:15) Hydromorphone Pf Inj (Dilaudid Pf Inj) (05/14/17 19:30) Hydromorphone Pf Inj (Dilaudid Pf Inj) (05/14/17 20:45) Hydromorphone Pf Inj (Dilaudid Pf Inj) (05/14/17 22:00) Ed Discharge Order (05/14/17 21:47) Labs Laboratory Tests Test 05/14/17 20:03 White Blood Count 12.4 TH/MM3 Red Blood Count 3.01 MIL/MM3 Hemoglobin 9.0 GM/DL Hematocrit 27.1 % Mean Corpuscular Volume 90.1 FL Mean Corpuscular Hemoglobin 30.0 PG Mean Corpuscular Hemoglobin Concent 33.3 % Red Cell Distribution Width 14.9 % Platelet Count 687 TH/MM3 Mean Platelet Volume 7.6 FL Neutrophils (%) (Auto) 72.5 % Lymphocytes (%) (Auto) 17.3 % Monocytes (%) (Auto) 7.4 % Eosinophils (%) (Auto) 1.1 % Basophils (%) (Auto) 1.7 % Neutrophils # (Auto) 9.1 TH/MM3 Lymphocytes # (Auto) 2.2 TH/MM3 Monocytes # (Auto) 0.9 TH/MM3 Eosinophils # (Auto) 0.1 TH/MM3 Basophils # (Auto) 0.2 TH/MM3 CBC Comment DIFF FINAL Differential Comment Reticulocyte Count 4.2 % Absolute Reticulocyte Count 120.0 MIL/L Blood Urea Nitrogen 6 MG/DL Creatinine 0.41 MG/DL Random Glucose 76 MG/DL Total Protein 7.6 GM/DL Albumin 3.9 GM/DL Calcium Level 8.3 MG/DL Alkaline Phosphatase 54 U/L Aspartate Amino Transf (AST/SGOT) 25 U/L Alanine Aminotransferase (ALT/SGPT) 18 U/L Total Bilirubin 2.2 MG/DL Sodium Level 139 MEQ/L Potassium Level 3.4 MEQ/L Chloride Level 109 MEQ/L Carbon Dioxide Level 25.1 MEQ/L Anion Gap 5 MEQ/L Estimat Glomerular Filtration Rate 229 ML/MIN MDM Medical Decision Making Medical Screen Exam Complete: Yes Emergency Medical Condition: Yes Medical Record Reviewed: Yes Interpretation(s) Laboratory Tests Test 05/14/17 20:03 White Blood Count 12.4 TH/MM3 (4.0-11.0) Red Blood Count 3.01 MIL/MM3 (4.00-5.30) Hemoglobin 9.0 GM/DL (11.6-15.3) Hematocrit 27.1 % (35.0-46.0) Platelet Count 687 TH/MM3 (150-450) Neutrophils (%) (Auto) 72.5 % (16.0-70.0) Neutrophils # (Auto) 9.1 TH/MM3 (1.8-7.7) Reticulocyte Count 4.2 % (0.4-3.0) Blood Urea Nitrogen 6 MG/DL (7-18) Creatinine 0.41 MG/DL (0.50-1.00) Calcium Level 8.3 MG/DL (8.5-10.1) Total Bilirubin 2.2 MG/DL (0.2-1.0) Potassium Level 3.4 MEQ/L (3.5-5.1) Chloride Level 109 MEQ/L (98-107) Differential Diagnosis Sickle-cell crisis versus metabolic issues versus dehydration versus symptomatic anemia Narrative Course Patient was given IV fluids, pain medications, Zofran, Benadryl in the ER. On reevaluation she was still having pain in his second dose was given. Lab work did not show any significant metabolic issues and her reticulocyte count was mildly elevated although not severely elevated. She is afebrile in the ER and vital signs are stable. On reevaluation again at 9:45 PM, she is sitting up, reports feeling improved, but is requesting 1 more dose of pain medication, wants to go home. At this point, my plan would be to release her with follow- up to hematology. Return for worsening in pain, any fevers, new medications and as needed. The plan has been discussed with her and she states understanding. Diagnosis Primary Impression: Sickle cell anemia with crisis Disposition: 01 DISCHARGE HOME Condition: Stable Donaldo Larsen MD May 14, 2017 19:18
[2017-05-14] MEDS ORDERED: HYDROmorphone HCL PF 2 MG/ML VIAL IV PUSH ONE ×3 (19:30→22:15)
[2017-05-14 20:06] LABS: AUTOMATED NEUTROPHIL # 9.1 TH/MM3 (1.8-7.7); BASOPHIL # 0.2 TH/MM3 (0-0.2); BASOPHIL % 1.7 % (0.0-2.0); EOSINOPHIL # 0.1 TH/MM3 (0-0.4); EOSINOPHIL % 1.1 % (0.0-4.0); HEMATOCRIT 27.1 % (35.0-46.0); LYMPH % 17.3 % (9.0-44.0); LYMPHOCYTE # 2.2 TH/MM3 (1.0-4.8); MEAN CELL VOLUME 90.1 FL (80.0-100.0); MEAN CORPUSCULAR HGB CONC 33.3 % (32.0-36.0); MEAN PLATELET VOLUME 7.6 FL (7.0-11.0); MONO % 7.4 % (0.0-8.0); MONOCYTE # 0.9 TH/MM3 (0-0.9); NEUT % 72.5 % (16.0-70.0); PLATELET COUNT 687 TH/MM3 (150-450); RED BLOOD COUNT 3.01 MIL/MM3 (4.00-5.30); RED CELL DISTRIBUTION WIDTH 14.9 % (11.6-17.2); WHITE BLOOD COUNT 12.4 TH/MM3 (4.0-11.0)
[2017-05-14 21:04] LABS: CHLORIDE 109 MEQ/L (98-107); SODIUM (NA) 139 MEQ/L (136-145)
[2017-05-14 21:09] LABS: CALCIUM 8.3 MG/DL (8.5-10.1)
[2017-05-14 21:10] LABS: ALBUMIN 3.9 GM/DL (3.4-5.0); BICARBONATE 25.1 MEQ/L (21.0-32.0); BLOOD UREA NITROGEN 6 MG/DL (7-18); GLUCOSE,RANDOM 76 MG/DL (74-106)
[2017-05-14 21:13] LABS: ALT (GPT) 18 U/L (10-53); AST (GOT) 25 U/L (15-37); CREATININE 0.41 MG/DL (0.50-1.00); GLOMERULAR FILTRATION RATE 229 ML/MIN (>89)
[2017-05-14 21:15] LABS: TOTAL BILIRUBIN ADULT 2.2 MG/DL (0.2-1.0); TOTAL PROTEIN 7.6 GM/DL (6.4-8.2)
[2017-05-14 21:16] LABS: ALKALINE PHOSPHATASE 54 U/L (45-117)
[2017-05-14 21:40] LABS: RETIC % 4.2 % (0.4-3.0)
== END 2017-05-14 23:13 | disposition home or self-care (01) ==
LOC: PHED 17:44
DX: D57.00 Hb-SS disease with crisis, unspecified (principal); I27.20 Pulmonary hypertension, unspecified; Z86.711 Personal history of pulmonary embolism
CPT/HCPCS: 80053; 85025; 85044; 96361; 96374; 96375; 96376; 99284; J1170; J1200; J1642; J2405; J7030

== ENCOUNTER 2017-06-28 12:18 | Emergency (ER) | payer OTHER ==
[~2017-06-28] VITALS: Ht 170.2 cm; Wt 60.0 kg
[~2017-06-28 12:18] MED LIST changes: -BACT800T5 PO; -ENOX100P SQ; -OXYC-395 PO; +XARE20TA PO
[2017-06-28 12:21] VITALS: BP 106/64; PULSE 85; RESP 18; TEMP 98.4; O2SAT 100
[2017-06-28] MEDS ORDERED: SODIUM CHLOR 0.9% 1000 ML INJ 1,000 ML IV ONE ×2 (14:33→17:00)
[2017-06-28] MEDS ORDERED: SODIUM CHLORIDE 0.9% FLUSH 10 ML FLUSH IVF PRN (14:45)
--- NOTE | 2017-06-28 14:58 | PD ---
HPI Chief Complaint: Pain: Acute or Chronic Time Seen by Provider: 14:32 Travel History International Travel<30 days: No Contact w/Intl Traveler<30days: No Traveled to known affect area: No History of Present Illness HPI 26-year-old female with PMH of sickle cell anemia, recurrent PE presents to the ED for evaluation of generalized body pain since this afternoon. Patient states that she feels as if she is caught a cold after being caught in the rain 3 or 4 days ago. She endorses sinus congestion, rhinorrhea, sore throat, nonproductive cough. She endorses a fever of 102 by oral temperature at home 2 days ago. She denies chest pain, shortness of breath, abdominal pain, nausea, dysuria, weakness of the extremities. She saw Dr. Chen and also had diaphoresis today. She states that her pain onset after diaphoresis. She did not receive this years flu vaccine. PFSH Past Medical History Hx Anticoagulant Therapy: Yes Anemia: Yes Arthritis: No Asthma: No Autoimmune Disease: No Blood Disorders: Yes Anxiety: No Depression: No Heart Rhythm Problems: No Cancer: No Cardiovascular Problems: Yes (PUL HYPERTENSION) High Cholesterol: No Chemotherapy: No Chest Pain: Yes Congestive Heart Failure: No COPD: No Cerebrovascular Accident: No Diabetes: No Diminished Hearing: No Endocrine: No Gastrointestinal Disorders: No GERD: No Genitourinary: No Headaches: Yes Hiatal Hernia: No Heparin Induced Thrombocytopen: No Hypertension: Yes (pulmonary) Immune Disorder: No Implanted Vascular Access Dvce: Yes (RIGHT INFUSAPORT) Kidney Stones: No Musculoskeletal: No Neurologic: No Psychiatric: No Reproductive: Yes (PE 2013) Respiratory: Yes (PE 2013) Immunizations Current: Yes Migraines: No Pneumonia: Yes Radiation Therapy: No Renal Failure: No Seizures: No Sickle Cell Disease: Yes Sleep Apnea: No Thyroid Disease: No Ulcer: No Tetanus Vaccination: < 5 Years ?: Not : 0 Para: 0 Miscarriage: 0 : 0 Past Surgical History Abdominal Surgery: No AICD: No Arteriovenous Shunt: No Body Medical Devices: right chest POWER PORT Cardiac Surgery: No Cholecystectomy: Yes Ear Surgery: No Endocrine Surgery: No Eye Surgery: No Genitourinary Surgery: No Gynecologic Surgery: No Hysterectomy: No Insulin Pump: No Joint Replacement: No Neurologic Surgery: No Oral Surgery: No Pacemaker: No Thoracic Surgery: No Other Surgery: Yes (PORT) Social History Alcohol Use: No Tobacco Use: No Substance Use: No Allergies-Medications (Allergen,Severity, Reaction): Coded Allergies: pineapple (Unverified Allergy, Severe, 06/28/17) FACE SWELLING ITCHING Reported Meds & Prescriptions Reported Meds & Active Scripts Active Reported Xarelto (Rivaroxaban) 20 Mg Tab 20 Mg PO DAILY Mirena (Levonorgestrel (Iud)) 20 Mcg/24 Hour (5 Years) Iud 52 Mg I-UTERINE ONCE Folic Acid 0.4 Mg Tab 1 Mg PO DAILY Hydrea (Hydroxyurea) 500 Mg Cap 500 Mg PO DAILY Review of Systems Except as stated in HPI: all other systems reviewed are Neg Physical Exam Narrative GENERAL: Well-nourished, well-developed -Iranian female no acute distress. SKIN: Focused skin assessment warm/dry. HEAD: Normocephalic. ENT: Pearly kerr tympanic membrane's bilaterally. Oropharynx without erythema, edema, exudate. Uvula midline. Airway patent. EYES: No scleral icterus. No injection or drainage. NECK: Supple, trachea midline. No JVD. Bilateral submandibular tender lymphadenopathy. CARDIOVASCULAR: Regular rate and rhythm without murmurs, gallops, or rubs. RESPIRATORY: Breath sounds clear and equal bilaterally. No accessory muscle use. GASTROINTESTINAL: Abdomen soft, non-tender, nondistended. MUSCULOSKELETAL: No cyanosis, or edema. BACK: Nontender without obvious deformity. No CVA tenderness. Data Data Last Documented VS Vital Signs Date Time Temp Pulse Resp B/P (MAP) Pulse Ox O2 Delivery O2 Flow Rate FiO2 06/28/17 15:13 100 Nasal Cannula 2.00 06/28/17 12:21 98.4 85 18 106/64 (78) Orders Orders Basic Metabolic Panel (Bmp) (06/28/17 14:33) Complete Blood Count With Diff (06/28/17 14:33) Retic Count (06/28/17 14:33) Urinalysis - C+S If Indicated (06/28/17 14:33) Chest, Single Ap (06/28/17 14:33) Ecg Monitoring (06/28/17 14:33) Iv Access Insert/Monitor (06/28/17 14:33) Oximetry (06/28/17 14:33) Sodium Chloride 0.9% Flush (Ns Flush) (06/28/17 14:45) Sodium Chlor 0.9% 1000 Ml Inj (Ns 1000 M (06/28/17 14:33) Influenzae A/B Antigen (06/28/17 14:33) Ed Urine Pregnancytest Poc (06/28/17 14:33) Hydromorphone Pf Inj (Dilaudid Pf Inj) (06/28/17 15:30) Diphenhydramine Inj (Benadryl Inj) (06/28/17 16:15) Hydromorphone Pf Inj (Dilaudid Pf Inj) (06/28/17 17:00) Sodium Chlor 0.9% 1000 Ml Inj (Ns 1000 M (06/28/17 17:00) Oxygen Administration (06/28/17 16:52) Calcium Carbonate Chew (Tums Chew) (06/28/17 17:15) Ed Discharge Order (06/28/17 17:31) Heparin Central Flush (Heparin Central F (06/28/17 18:45) Labs Laboratory Tests Test 06/28/17 15:10 White Blood Count 12.5 TH/MM3 Red Blood Count 3.59 MIL/MM3 Hemoglobin 10.4 GM/DL Hematocrit 30.3 % Mean Corpuscular Volume 84.3 FL Mean Corpuscular Hemoglobin 29.0 PG Mean Corpuscular Hemoglobin Concent 34.4 % Red Cell Distribution Width 15.4 % Platelet Count 198 TH/MM3 Mean Platelet Volume 7.3 FL Neutrophils (%) (Auto) 67.2 % Lymphocytes (%) (Auto) 22.8 % Monocytes (%) (Auto) 8.6 % Eosinophils (%) (Auto) 1.0 % Basophils (%) (Auto) 0.4 % Neutrophils # (Auto) 8.4 TH/MM3 Lymphocytes # (Auto) 2.8 TH/MM3 Monocytes # (Auto) 1.1 TH/MM3 Eosinophils # (Auto) 0.1 TH/MM3 Basophils # (Auto) 0.1 TH/MM3 CBC Comment DIFF FINAL Differential Comment Reticulocyte Count 1.9 % Absolute Reticulocyte Count 69.0 MIL/L Urine Color YELLOW Urine Turbidity HAZY Urine pH 7.0 Urine Specific [place] 1.014 Urine Protein NEG mg/dL Urine Glucose (UA) NEG mg/dL Urine Ketones NEG mg/dL Urine Occult Blood TRACE Urine Nitrite NEG Urine Bilirubin NEG Urine Urobilinogen LESS THAN 2.0 MG/DL Urine Leukocyte Esterase LARGE Urine RBC 1 /hpf Urine WBC 8 /hpf Urine Squamous Epithelial Cells 10 /hpf Urine Bacteria RARE /hpf Urine Mucus FEW /lpf Microscopic Urinalysis Comment CULT NOT INDICATED Blood Urea Nitrogen 4 MG/DL Creatinine 0.37 MG/DL Random Glucose 72 MG/DL Calcium Level 7.9 MG/DL Sodium Level 142 MEQ/L Potassium Level 3.7 MEQ/L Chloride Level 111 MEQ/L Carbon Dioxide Level 25.6 MEQ/L Anion Gap 5 MEQ/L Estimat Glomerular Filtration Rate 257 ML/MIN MDM Medical Decision Making Medical Screen Exam Complete: Yes Emergency Medical Condition: Yes Differential Diagnosis Viral syndrome versus influenza versus sickle cell crisis versus other Narrative Course 26-year-old female with PMH of sickle cell anemia, recurrent PE presents to the ED for evaluation of generalized body pain since this afternoon. Patient states that she feels as if she is caught a cold after being caught in the rain 3 or 4 days ago. She endorses sinus congestion, rhinorrhea, sore throat, nonproductive cough. She endorses a fever of 102 by oral temperature at home 2 days ago. She denies chest pain, shortness of breath, abdominal pain, nausea, dysuria, weakness of the extremities. She saw Dr. Chen and also had blood exchange today. She states that her pain onset after the procedure. She did not receive this years flu vaccine. Vitals reviewed. Physical exam is unremarkable. IV was established. Patient was administered 1 mg Dilaudid and 1 L normal saline. I reviewed Dr. Chen's note. Patient did complain of cold symptoms at this visit but no pain symptoms. CBC: WBC 12.5. Hemoglobin 10.4. CMP: BUN 4, creatinine 0.37. Absolute reticulocyte count 69. Reticulocyte count 1.9. UA: No culture indicated. Flu swab negative. On recheck patient states pain is not improved. She was administered additional 1 mg Dilaudid, 1 L normal saline and O2 was applied. I discussed the patient with Dr. Aguilar. He does not recommend any further pain management. The patient is stable and discharged home. Diagnosis Primary Impression: Sickle cell anemia Qualified Codes: D57.1 - Sickle-cell disease without crisis Referrals: Spencer Chen MD Additional Instructions: Rest, hydrate. Resume normal, gentle activities as tolerated. Follow-up with Dr. Chen. Return to the ED for any urgent or emergent medical condition. Disposition: 01 DISCHARGE HOME Condition: Stable Miriam Mazariegos June 28, 2017 14:58
[2017-06-28] MEDS ORDERED: HYDROmorphone HCL PF 1 MG/ML VIAL IV PUSH ONE ×2 (15:00→17:00)
[2017-06-28 15:13] VITALS: O2SAT 100
--- NOTE | 2017-06-28 15:18 | RADRPT ---
EXAM DATE/TIME: 06/28/2017 14:52 [facility] COMPARISON: CHEST SINGLE AP, December 27, 2016, 14:21. INDICATIONS : Body aches MEDICAL HISTORY : Sickle Cell disease. SURGICAL HISTORY : None. ENCOUNTER: Initial ACUITY: 1 day PAIN SCORE: Non-responsive. LOCATION: Bilateral chest FINDINGS: A single view of the chest demonstrates the lungs to be symmetrically aerated without evidence of mas s, infiltrate or effusion. The cardiomediastinal contours are unremarkable. Osseous structures are intact. Right central line in place. CONCLUSION: No acute disease. No significant change has occurred. Solomon Bustillo MD on June 28, 2017 at 15:16 Board Certified Radiologist. This report was verified electronically.
[2017-06-28] MEDS ORDERED: HYDROmorphone HCL PF 2 MG/ML VIAL IV ONE (15:30)
[2017-06-28] MEDS ORDERED: diphenhydrAMINE HCL 50 MG/ML VIAL IV PUSH ONE (16:15)
[2017-06-28 16:19] LABS: AUTOMATED NEUTROPHIL # 8.4 TH/MM3 (1.8-7.7); BASOPHIL # 0.1 TH/MM3 (0-0.2); BASOPHIL % 0.4 % (0.0-2.0); EOSINOPHIL # 0.1 TH/MM3 (0-0.4); HEMATOCRIT 30.3 % (35.0-46.0); HEMOGLOBIN 10.4 GM/DL (11.6-15.3); LYMPH % 22.8 % (9.0-44.0); LYMPHOCYTE # 2.8 TH/MM3 (1.0-4.8); MEAN CELL VOLUME 84.3 FL (80.0-100.0); MEAN CORPUSCULAR HGB CONC 34.4 % (32.0-36.0); MEAN PLATELET VOLUME 7.3 FL (7.0-11.0); MONO % 8.6 % (0.0-8.0); MONOCYTE # 1.1 TH/MM3 (0-0.9); NEUT % 67.2 % (16.0-70.0); PLATELET COUNT 198 TH/MM3 (150-450); RED BLOOD COUNT 3.59 MIL/MM3 (4.00-5.30); RED CELL DISTRIBUTION WIDTH 15.4 % (11.6-17.2); RETIC % 1.9 % (0.4-3.0); WHITE BLOOD COUNT 12.5 TH/MM3 (4.0-11.0)
[2017-06-28 16:24] LABS: BACTERIA, URINE RARE /hpf; BILIRUBIN, URINE NEG (NEG); BLOOD, URINE TRACE (NEG); GLUCOSE,URINE NEG (NEG); KETONE, URINE NEG (NEG); MUCUS URINE FEW /lpf (OCC); NITRITE,URINE NEG (NEG); SQUAMOUS EPITHELIAL CELL URINE 10 /hpf (0-5); URINE COLOR YELLOW (YELLW/STRAW); URINE LEUKOCYTE ESTERASE LARGE (NEG)
[2017-06-28 16:41] LABS: BICARBONATE 25.6 MEQ/L (21.0-32.0); CALCIUM 7.9 MG/DL (8.5-10.1); CREATININE 0.37 MG/DL (0.50-1.00)
[2017-06-28] MEDS ORDERED: CALCIUM CARBONATE 500 MG CHEWABLE TAB CHEW ONE (17:15)
== END 2017-06-28 19:01 | disposition home or self-care (01) ==
LOC: NEPD 12:18
DX: D57.1 Sickle-cell disease without crisis (principal)
CPT/HCPCS: 71045; 80048; 81001; 84703; 85025; 85044; 87804; 96361; 96374; 96375; 96376; 99284; J1170; J1200; J1642; J7030